=== PATIENT | female | born 1965 | race Caucasian/White ===

== ENCOUNTER 2023-12-27 13:58 | Outpatient (OUT) | payer OTHER, SELFPAY ==
--- NOTE | 2023-12-27 14:58 | PM.CN ---
Consult Note: HPI Data of Consult Patient: new to practice Consult date: 12/27/23 Requesting Physician: Chris Shah MD Primary Care Provider: BOONE PHILIPPE Consult Narrative Reason for consult: low back, left hip and leg pain Narrative: 58yof who presents for evaluation. longstanding left low back pain, radiates into hip and leg. worsened over past several months as physical demands at job have increased. was previously diagnosed with sacroiliac joint pathology at [facility]. has continued in a series of provider directed home exercises >6 weeks, without significant benefit. uses ibuprofen daily, as needed. denies adverse med side effects. cc:: CC: Chris Shah MD Review of Systems ROS Status of ROS 10 or more systems reviewed and unremarkable except as noted in history and below Exam Narrative Exam Narrative: Psych-alert and oriented x 3. Attentive and appropriate, constitutionally normal, displays normal mood and affect per situation. There are no obvious deficits in memory, reasoning, or intellect.? Skin-no obvious rashes, bruising, erythema noted to the patient's area of pain.? Extremities- extremities are warm with minimal edema and palpable pulses. Lumbar-tenderness to palpation noted in the lumbar spine and paraspinal musculature. Pain is elicited with flexion, extension, and lateral rotation of the lumbar spine. Range of motion is diminished with these motions. Facet loading maneuvers are positive.? Strength-noted to be unremarkable with the exception of decreased strength rated at 4 out of 5 in left quadriceps femoris. Sensory-no notable sensory deficits in the bilateral lower extremities to touch or pinprick in all dermatomal distributions with the exception to decreased sensation to the left L4, 5 dermatomal distribution Sacroiliac - tender to palpation over left PSIS. Positive Elkin's on left. Positive thigh thrust on left. Coordination remains intact.? Gait remains non-antalgic. Assessment and Plan Assessment and Plan (1) Lumbar stenosis with neurogenic claudication: (2) Sacroiliac joint dysfunction of left side: Plan 58yof who presents for evaluation. failed conservative measures, as noted. given symptoms and exam findings, would like her to undergo lumbar mri without contrast, as well as xr sacrum and left hip. she is in agreement. meds reviewed. will trial celebrex 200mg bid prn, as well as baclofen 10mg qhs. follow up after imaging.
== END 2023-12-27 13:59 | disposition home or self-care (01) ==
LOC: PM 13:58
PROVIDERS: PCP Family Medicine; Visit Provider Anesthesiology
DX: M48.062 Spinal stenosis, lumbar region with neurogenic claudication (principal); M53.3 Sacrococcygeal disorders, not elsewhere classified
CPT/HCPCS: G0463

== ENCOUNTER 2024-02-14 15:16 | Outpatient (OUT) | payer OTHER, SELFPAY ==
--- NOTE | 2024-02-14 15:19 | MR_ITS ---
[place] [id number] Patient Name: MEG HERNANDEZ MRN: [facility]:[id number] date: 1965 Sex: F Assigned Patient Location: MRI Current Patient Location: MRI Accession/Order Number: [id number] Exam Date: 02/14/2024 15:32 Report Date: 02/16/2024 12:05 At the request of: HANY ROCK Procedure: MR lumbar spine wo con EXAMINATION: MR lumbar spine wo con HISTORY: Lumbar Stenosis With Neurocladication Chronic lumbar pain, 8 years. COMPARISON: None. TECHNIQUE: Multiplanar, multisequence MRI images of the lumbar spine without intravenous contrast. FINDINGS: There is grade 1 anterolisthesis at L4-L5 measuring 3 mm. Remaining vertebral bodies are anatomically aligned. No compression fractures. Moderate disc space narrowing at T11-T12 and disc desiccation throughout the lumbar spine. Conus medullaris terminates at L1. No abnormal signal in the distal spinal cord and the conus medullaris. L5-S1: Moderate to severe bilateral degenerative facet arthropathy and ligamentum flavum flavum hypertrophy. There is no significant central spinal canal or foraminal stenosis. L4-L5: Grade 1 anterolisthesis. Moderate to severe right and moderate left degenerative facet arthropathy. No spinal canal or foraminal stenosis. L3-L4: Minimal disc bulge and moderate bilateral degenerative facet arthropathy. No spinal canal or foraminal stenosis. L2-L3: Diffuse disc bulge. Mild facet arthropathy. No spinal canal or foraminal stenosis. T12-L1 and L1-L2: No disc herniations. No spinal canal or significant neural foraminal stenosis. MR/MR lumbar spine wo con IMPRESSION: 1. Mild multilevel degenerative disc disease and moderate multilevel facet arthropathy in the lumbar spine. 2. There is degenerative grade 1 anterolisthesis at L4-L5 secondary to facet arthropathy. 3. There are no levels of significant central spinal canal or foraminal stenosis in the lumbar spine. No compression fractures. Electronically authenticated by: TILA VÁSQUEZ Date: 02/16/2024 12:05
--- OUTSIDE RECORDS SUMMARY | 2024-02-14 15:27 | XMS_ITS | CCD ---
Author Organization [facility] Care Team Providers Care Equipment Installer Name Role Phone BOONE CORTES Attending Unavailable BOONE CORTES Primary Care Unavailable KUNYasir, DR SHOOK Primary Care Unavailable SAMSA, VERÓNICA Admitting Unavailable SAMSA, VERÓNICA Consulting Unavailable SAMSA, VERÓNICA Attending Unavailable KUNYasir, DR SHOOK Primary Care Unavailable SAMSA, VERÓNICA Admitting Unavailable SAMSA, VERÓNICA Consulting Unavailable SAMSA, VERÓNICA Attending Unavailable SEBASTIAN, DR SHOOK Primary Care Unavailable SAMSA, VERÓNICA Consulting Unavailable SAMSA, VERÓNICA Attending Unavailable SAMSA, VERÓNICA Admitting Unavailable KATELYNN PROCTOR Consulting Unavailable KUNYasir, DR SHOOK Primary Care Unavailable SAMSA, VERÓNICA Admitting Unavailable SAMSA, VERÓNICA Consulting Unavailable SAMSA, VERÓNICA Attending Unavailable ZIEBER, DR DANIKA Wan Consulting Unavailable KUNYasir, DR SHOOK Primary Care Unavailable SAMSA, VERÓNICA Attending Unavailable SAMSA, VERÓNICA Admitting Unavailable SAMSA, VERÓNICA Consulting Unavailable Clare Cortestt Unavailable Phong Mitchell Unavailable Gerhard Nunez Unavailable [phone] Sebastian, DO Shook Primary Care Provider Sebastian, DO Shook Attending Provider [phone] Enders, DO Shook Primary Care Provider DO Boone Cortes Attending Provider [phone] Enders, DO Shook Primary Care Provider Enders, DO Shook Attending Provider Enders, DO Shook Primary Care Provider Sebastian, DO Shook Attending Provider Pablo GAYTAN, Chris Barnett Attending Unavailable PROVIDER, UNKNOWN Attending Unavailable PROVIDER, UNKNOWN Admitting Unavailable RULA WARREN Referring Unavailable BOONE CORTES Primary Care Unavailable Sebastian, DO Shook Primary Care Provider DO Boone Cortes Attending Provider Kuns DO, Boone R Primary Care Provider [phone] LOTUS CHILDS Attending Unavailable LOTUS CHILDS Referring Unavailable ORESTES SANCHEZ Attending Unavailable Sebastian, Boone Primary Care Unavailable Enders, Boone Attending Unavailable Enders, Boone Admitting Unavailable Kuns, Boone Attending Unavailable Enders, Boone Admitting Unavailable Kuns, Boone Primary Care Unavailable Allergies Allergy Classification Reported Allergen(s) Allergy Type Date of Onset Reaction(s) Facility (1 source) Azithromycin Drug Allergy 12-27-19 20 [facility] (1 source) Cetirizine Drug Allergy 12-28-19 20 [facility] (20 sources) Azithromycin Drug Allergy 01-21-20 21 cardiac Sx, rapid heart rate, rapid heart rate, cardiac Sx [facility] (20 sources) fluticasone / vilanterol Drug Allergy Unknown Medialets Other (20 sources) Breo Propensity to adverse reactions 04-27-19 24 headache [facility] (1 source) Betamethasone Drug Allergy 05-17-19 16 Swelling [facility] (1 source) Fluticasone Furoate-Vilantero l Drug Allergy 04-27-19 24 [facility] Medications Current Medications Medication Drug Class(es) Dates Sig (Normalized) Sig (Original) acetaminophen 325 mg / HYDROcodone bitartrate 5 mg oral tablet (2 sources) Opioid Agonist Start: 02-12-2021 take 1 tablet by mouth every six hours HYDROcodone-Aceta minophen 5-325 MG 1 tablet as needed Orally every 6 hrs for 7 days Jan, Active albuterol 0.417 mg/ml inhalation solution (20 sources) beta2-Adrenergic Agonist Start: 01-20-2021 take 1.25 mg by inhalation every four to six hours Albuterol Sulfate Active 1.25 MG INHALATION EVERY 4-6 HOURS January 20, 2021 12:00am Start: 09-19-2019 take 1 puff(s) by in halation every four hours as needed Albuterol Sulfate HFA 108 (90 Base) MCG/ACT 1 puff as needed Inhalation every 4 hrs PRN Sep, Not-Taking/PRN Start: 09-19-2019 take 1 puff(s) by in halation every four hours as needed Albuterol Sulfate HFA 108 (90 Base) MCG/ACT 1 puff as needed Inhalation every 4 hrs PRN Sep, Not-Taking Start: 09-19-2019 take 1 puff(s) by in halation every four hours as needed Albuterol Sulfate HFA 108 (90 Base) MCG/ACT 1 puff as needed Inhalation every 4 hrs PRN Sep, Not-Taking albuterol (5 MG/ ML) 0.5% nebulizer solution Take by nebulization every 6 (six) hours if needed for wheezing Active Albuterol Sulfat e (2.5 MG/3ML) 0.083% 1 unit dose Inhalation four times a day DX J44.9 COPD Not-Taking/PRN Albuterol Sulfat e (2.5 MG/3ML) 0.083% 1 unit dose Inhalation four times a day DX J44.9 COPD Not-Taking amoxicillin 875 mg / clavulanate 125 mg oral tablet (3 sources) Penicillin-class Antibacterial Start: 06-30-2022 take 1 tablet by mouth every twelve hours Amoxicillin-Pot Clavulanate 875-125 MG 1 tablet Orally every 12 hrs for 10 days Jun, Active azithromycin 250 mg oral tablet (1 source) Macrolide Antimicrobial Start: 12-29-2021 Zithromax Z-Rishi 250 MG as directed Orally as directed Dec, Active baclofen 10 mg oral tablet (1 source) gamma-Aminobutyric Acid-ergic Agonist Start: 01-23-2024 take 1 tablet by mouth at bedtime baclofen (Lioresal) 10 MG tablet Take 10 mg by mouth at bedtime 01/23/2024 Active celecoxib 200 mg oral capsule (1 source) Nonsteroidal Anti-inflammatory Drug Start: 01-23-2024 take 1 capsule by mouth twice daily as needed celecoxib (CeleBREX) 200 MG capsule TAKE 1 CAPSULE BY MOUTH TWICE A DAY NEEDED 01/23/2024 Active cyclobenzaprine hydrochloride 5 mg oral tablet (2 sources) Muscle Relaxant Start: 02-12-2021 take 1 tablet by mouth every eight hours Cyclobenzaprine HCl 5 MG 1 tablet as needed Orally every 8 hours Jan, Active doxycycline hyclate 100 mg oral tablet (4 sources) Tetracycline-class Drug Start: 12-24-2022 take 1 tablet by mouth every twelve hours Doxycycline Hyclate 100 MG 1 tablet Orally Twice a day for 10 days Dec, Active nabumetone 750 mg oral tablet (12 sources) Nonsteroidal Anti-inflammatory Drug Start: 03-05-2021 take 1 tablet by mouth every twelve hours Nabumetone 750 MG 1 tablet Orally Twice a day for 30 day(s) Feb, Active Nebulizer (7 sources) Start: 05-26-2018 Nebulizer PRN May, Active paxlovid (300/100) 20 x 150 mg & 10 x 100mg tablet therapy pack (4 sources) Start: 04-27-2023 Paxlovid (300/100) 20 x 150 MG & 10 x 100MG as directed Orally bid as directed for 5 days + Covid 04/27/22, GFR >60, Hold statin x 10 days Apr, Active predniSONE 20 mg oral tablet (7 sources) Start: 12-18-2020 take 1 tablet by mouth at mealtime, then take 1 tablet by mouth three times daily, then take 1 tablet by mouth twice daily, then take 1 tablet by mouth once daily predniSONE 20 MG 1 tablet with food or milk Orally 1 tab TID x 3 days , 1 tab BID x 3 days , 1 tab QD x 3 days Dec, Active rosuvastatin calcium 5 mg oral tablet (20 sources) HMG-CoA Reductase Inhibitor Start: 12-01-2023 take 5 mg by mouth once daily Rosuvastatin Active 5 MG PO Daily December 01, 2023 12:00am Start: 06-09-2022 take 1 tablet by ren th every twenty-four hours Rosuvastatin Calcium 5 MG 1 tablet Orally Once a day May, Active Completed/Discontinued Medications Medication Drug Class(es) Dates Sig (Normalized) Sig (Original) acetaminophen 500 mg oral tablet (4 sources) take 1 tablet by mouth every six hours Tylenol Extra Strength 500 MG 1 tablet as needed Orally every 6 hrs PRN Not-Taking/PRN Augmentin Tablets 875 MG (5 sources) Start: 10-06-2021 take 1 tablet by mouth every twelve hours Augmentin Tablets 875 MG 1 tablet orally twice a day Sep, Not-Taking Start: 10-06-2021 take 1 tablet by ren every twelve hours Augmentin Tablets 875 MG 1 tablet orally twice a day Sep, Active Start: 10-06-2021 take 1 tablet by ren every twelve hours Augmentin Tablets 875 MG 1 tablet orally twice a day for 10 days Sep, Active cefdinir 300 mg oral capsule (7 sources) Cephalosporin Antibacterial Start: 07-20-2023 End: 12-01-2023 take 300 mg by mouth twice daily Cefdinir Discontinued 300 MG PO Twice daily July 20, 2023 12:00am December 01, 2023 2:47pm Start: 04-27-2023 take 1 capsule by mo [facility] every twelve hours Cefdinir 300 MG 1 capsule Orally twice a day for 10 days Apr, Active fluticasone propionate 0.05 mg/actuat metered dose nasal spray (20 sources) Corticosteroid Start: 03-27-2021 take 2 spray(s) nasal route once daily as needed Fluticasone Propionate 50 MCG/ACT 2 sprays in each nostril Nasally Once a day for 30 day(s) PRN Mar, Not-Taking/PRN Start: 03-27-2021 take 2 spray(s) nasa l route once daily as needed Fluticasone Propionate 50 MCG/ACT 2 sprays in each nostril Nasally Once a day for 30 day(s) PRN Mar, Not-Taking ibuprofen 800 mg oral tablet (20 sources) Nonsteroidal Anti-inflammatory Drug Start: 08-24-2023 End: 02-09-2024 take 1 tablet by mouth three times daily as needed ibuprofen 800 MG tablet Take 800 mg by mouth 3 (three) times a day as needed 08/24/2023 02/09/2024 Discontinued Start: 01-20-2021 take 1 tablet by ren once daily Ibuprofen (Motrin) 800 mg Tablet Active 800 MG PO Daily January 20, 2021 12:00am Start: 07-07-2016 take 1 tablet by ren th three times daily as needed Ibuprofen 800 MG 1 tablet Orally Three times a day as needed for 90 days Jun, Active Start: 07-07-2016 take 1 tablet by ren th every six hours as needed Ibuprofen 800 MG 1 tablet Orally every 6 hrs as needed PRN Jun, Active Ketorolac (20 sources) Nonsteroidal Anti-inflammatory Drug, Cyclooxygenase Inhibitor Start: 08-21-2020 Toradol p er 15 mg August, 60 mg Start: 01-09-2015 Toradol per 15 mg Dec, 2 mL methylPREDNISolone (14 sources) Corticosteroid Start: 11-24-2023 End: 02-09-2024 methylPREDNISolone (Medrol Dospak) 4 MG tablets Indications: Cough, unspecified type Follow schedule on package instructions 21 tablet 11/24/2023 02/09/2024 Discontinued Start: 07-20-2023 End: 12-01-2023 take 1 tablet by mouth once Methylprednisolone (Medrol (Rishi)) 4 mg tablets,dose pack Discontinued 0 PO per package directions July 20, 2023 12:00am December 01, 2023 2:47pm PO PER PKG DIR Start: 12-24-2022 Medrol 4 MG as directed Orally Dec, Active Start: 10-06-2021 methylPREDNISo lone 4 MG as directed Orally as directed Dec, Active ondansetron 4 mg oral tablet (20 sources) Serotonin-3 Receptor Antagonist Start: 10-29-2020 take 1 tablet by mouth twice daily as needed Zofran 4 MG 1 tablet PO bid prn Oct, Not-Taking/PRN oxyCODONE hydrochloride 5 mg oral tablet (7 sources) Opioid Agonist Start: 02-04-2021 End: 12-01-2023 take 1 tablet by mouth every six hours Oxycodone (Roxicodone) 5 mg tablet Discontinued 5 MG PO Q6H 30 7 February 04, 2021 December 01, 2023 2:46pm pantoprazole 40 mg delayed release oral tablet (20 sources) Proton Pump Inhibitor Start: 01-20-2021 End: 12-01-2023 take 1 tablet by mouth in the morning pantoprazole (ProtoNix) 20 MG EC tablet Take 20 mg by mouth in the morning and 20 mg before bedtime. 12/01/2023 Active Start: 12-20-2019 End: 02-09-2024 take 1 tablet by mouth in the morning pantoprazole (ProtoNix) 40 MG EC tablet Take 40 mg by mouth in the morning and 40 mg before bedtime. 04/06/2023 02/09/2024 Discontinued Start: 12-20-2019 take 1 tablet by ren th every twelve hours Pantoprazole Sodium 40 MG 1 tablet Orally BID for 90 days Dec, Active Toradol 30 mg/ml (20 sources) Start: 09-20-2020 Toradol 30 mg/ ml Sep, 2 cc Triamcinolone (20 sources) Corticosteroid Start: 06-27-2021 Kenalog -40 mg Jun, 40 mg Tylenol Extra Strength 500 MG (20 sources) take 1 tablet by mouth every six hours as needed Tylenol Extra Strength 500 MG 1 tablet as needed Orally every 6 hrs PRN Not-Taking take 1 tablet by ren th every six hours as needed Tylenol Extra Strength 500 MG 1 tablet a s needed Orally every 6 hrs PRN Active Problems Active Problems Problem Classification Problem Date Documented Da te Episodic/Chronic Asthma (20 sources) Unspecified asthma, uncomplicated; Translations: [Unspecified asthma with (acute) exacerbation] Onset: 12-29-2019 Resolved: 12-10-2021 Chronic Chronic obstructive pulmonary disease and bronchiectasis (20 sources) Bronchitis; Translations: [Bronchitis, not specified as acute or chronic] Episodic Diabetes mellitus without complication (20 sources) Hyperglycemia, unspecified; Translations: [Hyperglycemia] Onset: 07-21-2018 Episodic Diseases of white blood cells (20 sources) Leukocytosis; Translations: [Elevated white blood cell count, unspecified] 08-09-2023 Chronic Disorders of lipid metabolism (20 sources) Hyperlipidemia; Translations: [Hyperlipidemia, unspecified] Onset: 11-24-2023 Chronic Esophageal disorders (20 sources) Gastro-esophageal reflux disease without esophagitis; Translations: [Gastroesophageal reflux disease] Onset: 02-13-2020 Resolved: 07-10-2021 Chronic Genitourinary congenital anomalies (13 sources) Cyst of kidney; 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, unspecified] Chronic Genitourinary symptoms and ill-defined conditions (20 sources) Frequency of micturition; Translations: [Hematuria, unspecified] Episodic Joint disorders and dislocations; trauma-related (20 sources) Tear of lateral meniscus of knee; Translations: [Other tear of lateral meniscus, current injury, right knee, subsequent encounter] Onset: 01-15-2021 Resolved: 06-27-2021 Episodic Malaise and fatigue (20 sources) Fatigue; Translations: [Other fatigue] Episodic Nonmalignant breast conditions (3 sources) Lump in upper outer quadrant of right breast; Translations: [Unspecified lump in the right breast, upper outer quadrant] Onset: 02-02-2024 02-09-2024 Episodic Nonspecific chest pain (3 sources) Chest pain, unspecified; Translations: [Chest pain, unspecified] Onset: 07-21-2018 Episodic Other circulatory disease (1 source) Other specified symptoms and signs involving the circulatory and respiratory systems Episodic Other endocrine disorders (2 sources) Hypoglycemia; Translations: [Hypoglycemia, unspecified] 08-09-2023 Chronic Other gastrointestinal disorders (19 sources) Diarrhea; Translations: [Diarrhea, unspecified] Episodic Other gastrointestinal disorders (1 source) Diarrhea, unspecified Episodic Other lower respiratory disease (19 sources) Cough; Translations: [Cough] 07-20-2023 Episodic Other lower respiratory disease (3 sources) Wheezing; Translations: [Wheezing] 07-20-2023 Episodic Other non-traumatic joint disorders (18 sources) Pain in right knee; Translations: [Right knee pain, unspecified chronicity] Onset: 01-15-2021 Resolved: 07-10-2021 Episodic Other non-traumatic joint disorders (16 sources) Swelling of knee joint; Translations: [Effusion, right knee] Episodic Other non-traumatic joint disorders (1 source) Pain in left ankle and joints of left foot Episodic Other nutritional; endocrine; and metabolic disorders (1 source) Obesity, unspecified; Translations: [OBESITY UNSPECIFIED] Onset: 02-13-2020 Chronic Other nutritional; endocrine; and metabolic disorders (1 source) Body mass index (BMI) 36.0-36.9, adult; Translations: [BODY MASS INDEX BMI 36.0-36.9 ADULT] Onset: 02-13-2020 Chronic Other screening for suspected conditions (not mental disorders or infectious disease) (20 sources) Raised TSH level; Translations: [Other specified abnormal findings of blood chemistry] Onset: 01-05-2024 12-01-2023 Episodic Other upper respiratory disease (9 sources) Rhinitis; Translations: [Chronic rhinitis] Chronic Other upper respiratory disease (2 sources) Chronic rhinitis Onset: 03-27-2021 Resolved: 12-10-2021 Chronic Other upper respiratory disease (20 sources) Chronic rhinitis; Translations: [Chronic rhinitis] Chronic Other upper respiratory infections (20 sources) Acute sinusitis; Translations: [Acute sinusitis, unspecified] Episodic Residual codes; unclassified (20 sources) Family history of breast cancer; Translations: [Family history of malignant neoplasm of breast] 08-09-2023 Episodic Residual codes; unclassified (20 sources) Family history of cancer of colon; Translations: [Family history of malignant neoplasm of digestive organs] 08-09-2023 Episodic Residual codes; unclassified (1 source) Pain, unspecified Episodic Spondylosis; intervertebral disc disorders; other back problems (20 sources) Lumbar radiculopathy; Translations: [Radiculopathy, lumbar region] 08-09-2023 Episodic Sprains and strains (1 source) Sprain of unspecified ligament of left ankle, initial encounter Episodic Unclassified (1 source) Pleural effusion, not elsewhere classified Onset: 07-21-2018 Unclassified (1 source) Cough, unspecified; Translations: [Cough, unspecified] Onset: 07-20-2023 Past or Other Problems Problem Classification Problem Date Documented Da te Episodic/Chronic Headache; including migraine (2 sources) Headache; including migraine Onset: 04-28-2021 Resolved: 04-28-2021 Immunizations and screening for infectious disease (1 source) Contact with and (suspected) exposure to other viral communicable diseases; Translations: [CONTCT EXPS OTH VIRL COMMUNICABL DZ] Onset: 02-05-2020 Episodic Other aftercare (1 source) Encounter for removal of sutures; Translations: [Visit for suture removal Z48.02] Onset: 02-12-2021 Resolved: 02-12-2021 Episodic Other lower respiratory disease (5 sources) Cough; Translations: [COUGH] Onset: 02-06-2020 Episodic Other lower respiratory disease (1 source) Dyspnea, unspecified; Translations: [DYSPNEA UNSPECIFIED] Onset: 02-13-2020 Episodic Other lower respiratory disease (1 source) Wheezing; Translations: [Wheezing] Onset: 07-20-2023 Episodic Other upper respiratory disease (4 sources) Other voice and resonance disorders; Translations: [OTHER VOICE AND RESONANCE DISORDERS] Onset: 02-01-2020 Episodic Unclassified (1 source) Cough R05.9 Onset: 03-27-2021 Resolved: 03-27-2021 Results Test Name Value Interpretation Reference Range Facility US breast ndl core biopsy RT on 02-10-2024 US breast ndl core biopsy RT [facility] Main [place] [address] [place] [address] Mammography Report Signed Patient: Desiree Bolanos MR#: [id number] 7 : 1965 Acct:[id number] Age/Sex: 58 / F ADM Date: 02/10/24 Loc: [facility] Room: Type: [facility] Attending Dr: Orestes Sanchez DO Copies to: Boone Cortes,DO Orestes Sanchez DO Ordering Provider: Orestse Sanchez DO Date of Service: 02/10/24 US/US breast ndl core biopsy RT: N63.11 ([id number]) US/US bx lymph node: LN BX ([id number]) MM/MM post biopsy RT w/CAD: POST U/S BX WITH CLIPS Ultrasound-guided breast lesion biopsy with vacuum assistance HISTORY: Developing right mass and right axillary adenopathy PRIOR IMAGIN02/02/2024, 01/05/2024 TECHNIQUE: Right quadrant mass was localized. Sterile technique and local lidocaine utilized. Core biopsy needle was advanced with ultrasound guidance Multiple core tissue samples of the lesion obtained. Before the needle was removed, biopsy marking clip placed. No immediate complications identified. The large right axillary lymph node was localized. Sterile technique and local lidocaine utilized. Core biopsy needle was advanced with ultrasound guidance Multiple core tissue samples of the lesion obtained. Before the needle was removed, biopsy marking clip placed. No immediate complications identified. Mammogram obtained for biopsy marking clip localization. Biopsy marking clip is seen within the lesion. Biopsy marking clip identified in the right axillary enlarged lymph node. MM/MM post biopsy RT w/CAD IMPRESSION: Successful ultrasound-guided breast lesion biopsy and right axillary lymph node biopsy. RESULT CODE: NL Impression dictated by: Bandar Wray M.D.02/10/2024 12:09 PM Dictation Location: [facility] Transcribed By: FREDRICK 02/10/24 1209 Dictated By: Bandar Wray DO 02/10/24 1143 Signed By: 02/10/24 1209 Normal [facility] US breast RT limitedon 02-01 US breast RT limited [facility] Main [place] [address] [place] [address] Mammography Report Signed Patient: Desiree Bolanos MR#: [id number] 7 : 1965 Acct:[id number] Age/Sex: 58 / F ADM Date: 02/02/24 Loc: [facility] Room: Type: [facility] Attending Dr: Boone Cortes DO Copies to: Boone Cortes DO Ordering Provider: Boone Cortes DO Date of Service: 02/02/24 US/US breast RT limited: R92.8 - Other abnormal and inconclusive findings on diagn... ([id number]) MM/MM diagnostic mammo RT w/CAD: R92.8 - Other abnormal and inconclusive findings on diagn... CLINICAL DATA: Follow-up abnormal outside mammogram showing an irregular mass with associated calcifications at the upper outer right breast. RIGHT DIAGNOSTIC MAMMOGRAMS - FULL FIELD DIGITAL WITH TOMOSYNTHESIS AND CAD Tomosynthesis true lateral and spot magnification craniocaudal and mediolateral oblique views of the right breast were obtained using low-dose digital technique. Comparison is made to prior studies from March 05, 2015 and January 05, 2024. This examination was reviewed with the aid of CAD. There are scattered fibroglandular densities. There is redemonstration of an irregular asymmetry at the upper outer right breast approximately 5 cm from the nipple. This contains pleomorphic appearing calcifications. There are some additional benign calcifications within the breast. The axilla is not included on today's images though there was a lymph node with thickened cortex seen on the recent outside screening study. When compared to the 2014 exam, this represents a change. LIMITED RIGHT BREAST ULTRASOUND Real-time ultrasound evaluation the upper outer breast was performed. The axilla was also scanned. At the 10:00 position, 7 to 8 cm from the nipple there is an ill-defined hypoechoic area which has some associated shadowing. The area is at least 2.3 x 1.6 x 1.5 cm in size. There are some echogenic foci correlating with the calcifications seen mammographically. At the axilla, there are multiple hypoechoic reniform nodules compatible with lymph nodes. One of the nodes has associated thickened cortex. It measures 2.4 x 1.0 x 2.7 cm in size The cortex measures up to a centimeter in thickness. MM/MM diagnostic mammo RT w/CAD IMPRESSION: IRREGULAR HYPOECHOIC AREA WITH ASSOCIATED PLEOMORPHIC CALCIFICATIONS AT THE UPPER OUTER RIGHT BREAST. THIS IS A SUSPICIOUS FINDING THAT WILL REQUIRE BIOPSY. ULTRASOUND GUIDANCE IS RECOMMENDED. RIGHT AXILLARY LYMPH NODE WITH THICKENED CORTEX. ULTRASOUND-GUIDED BIOPSY OF THIS SITE IS ALSO SUGGESTED. Findings were discussed with the patient at the time of the exam. RESULT CODE: 4 Suspicious Abnormality - Biopsy Considered DENSITY CODE: 2 (approximately 25-50% glandular) FOLLOW UP: BIO The false-negative rate of mammography is approximately 10-percent. Management of a palpable abnormality must be based on clinical grounds. Patient was entered into a reminder system with a target due date for the next mammogram. Impression dictated by: Belem Maldonado M.D.02/02/2024 3:26 PM Dictation Location: [facility] Transcribed By: [facility] 02/02/24 1526 Dictated By: Belem Maldonado MD 02/02/24 1450 Signed By: 02/02/24 1526 [place] [facility] MG MAMMO SCREEN BILAT CAMERON W /CADon 01-25-2024 MG MAMMO SCREEN BILAT [place]ERON W/CAD EXAM: BILATERAL SCREENING MAMMOGRAM W/TOMOSYNTHESIS AND CAD CLINICAL HISTORY: Patient is 58 years old and is seen for screening. The patient has no personal history of cancer. The patient has the following family history of breast cancer: mother, at age 73, breast cancer. COMPARISON: No prior imaging studies are available for comparison. TECHNIQUE: The following mammographic views were obtained: bilateral CC with tomosynthesis and MLO with tomosynthesis. Computer-aided detection was utilized by the radiologist in the interpretation of this examination. MAMMOGRAM FINDINGS: There are scattered areas of fibroglandular densities. Finding 1 There is an irregular mass with associated calcifications in the upper outer quadrant of the right breast at middle depth. Finding 2 There is an abnormal lymph node in the right axilla. No suspicious masses, calcifications or other abnormalities are seen in the left breast. IMPRESSION: Finding 1 Mass in the upper outer quadrant of the right breast at middle depth requires additional evaluation. A diagnostic right breast ultrasound exam ([id number]) is recommended. Diagnostic mammogram ([id number]) of the right breast including spot magnification views are recommended. Finding 2 Abnormal lymph node in the right axilla requires additional evaluation. A diagnostic right breast ultrasound exam ([id number]) is recommended. There is no evidence of malignancy in the left breast. BI-RADS Category 0: Incomplete, Needs Additional Imaging Evaluation The [facility] Coordinator and Navigator will place a reflexive Epic order, contact and schedule the appropriate appointments. RISK ASSESSMENT: Estimated lifetime breast cancer risk: Average (less than 15%, as per the Tyrer-Cuzick/ESTEFANÍA model) NCI Lifetime Risk Score: 14.0% Normal [facility] XR CHEST 2 VIEWSon XR CHEST 2 VIEWS EXAM: XR - CHEST 2 V IEWS Clinical History: Dry cough Reference Exam: No comparison Findings: The cardiopericardial silhouette is normal in appearance. The pulmonary vessels are not cephalized. There is no alveolar edema, pneumonia, or pneumothorax. Negative for pleural effusion. The skeleton is unremarkable. Impression: Negative for specific acute cardiopulmonic pathology. Dictated on: 11/24/2023 3:42 PM This report has been electronically signed and approved by the interpreting Radiologist. Electronically Signed Kana Jose M.D. 2023-11-24 15:42:22 Normal Not Available Alanine aminotransferase [En zymatic activity/volume] in Serum or PlasmaOrdered By: Boone Cortes on 07-20-2023 ALT [Catalytic activity/Vol] 22 U/L Normal 7-52 [facility] Comment on above: Performed By: #### D IFF CBC, BIOFIRECOVNOTDE, RESP PANEL UPP., CMP #### [facility] [address] Albumin [Mass/volume] in Ser um or Plasma by Bromocresol green (BCG) dye binding methoOrdered By: Boone Cortes on 07-20-2023 Albumin BCG dye [Mass/Vol] 4.5 g/dL 3.5-5.7 [facility] Alkaline phosphatase [Enzyma tic activity/volume] in Serum or PlasmaOrdered By: Boone Cortes on 07-20-2023 ALP [Catalytic activity/Vol] 86 U/L Normal 34-104 [facility] Comment on above: Result Comment: PERF ORMED BY: [place] [address] PATHOLOGIST PROGRAM DIR ROCKY GAMING M.D. Performed By: #### D IFF CBC, BIOFIRECOVNOTDE, RESP PANEL UPP., CMP #### [address] Aspartate aminotransferase [ Enzymatic activity/volume] in Serum or PlasmaOrdered By: Boone Cortes on 07-20-2023 AST [Catalytic activity/Vol] 19 U/L Normal 13-39 [facility] Comment on above: Performed By: #### D IFF CBC, BIOFIRECOVNOTDE, RESP PANEL UPP., CMP #### [place] [address] [place] Basophils Auto (Bld) [#/Vol] Ordered By: Boone Cortes on 07-20-2023 Basophils (Bld) [#/Vol] N/A [facility] Basophils/100 WBC Auto (Bld) Ordered By: Boone Cortes on 07-20-2023 Basophils/100 WBC (Bld) N/A [facility] Bilirubin.total [Mass/volume ] in Serum or PlasmaOrdered By: Boone Cortes on 07-20-2023 Bilirubin [Mass/Vol] 0.3 mg/dL Normal 0.3-1.0 [facility] Comment on above: Performed By: #### D IFF CBC, BIOFIRECOVNOTDE, RESP PANEL UPP., CMP #### [facility] [address] [place] [address] [place] BioFire Not Detectedon 07-19 BioFire Not Detected Not detected Normal Not Detecte [facility] Comment on above: Result Comment: This is a duplicate RP2.1 COVID (PCR) result to be used for statistical tracking purpose only. PERFORMED BY: [place] [address] PATHOLOGIST PROGRAM DIR ROCKY GAMING M.D. Performed By: #### D IFF CBC, BIOFIRECOVNOTDE, RESP PANEL UPP., CMP #### [facility] [address] COVID-19 Detected/Not Detect edOrdered By: Boone Cortes on 07-20-2023 SARS-CoV-2 (COVID-19) RNA MICHELLE+non-probe Ql (Nph) Not detected Not Detecte [facility] Comment on above: This is a duplicate RP2.1 COVID (PCR) result to be used for statistical tracking purpose only. Calcium [Mass/volume] in Ser um or PlasmaOrdered By: Boone Cortes on 07-20-2023 Calcium [Mass/Vol] 9.7 mg/dL Normal 8.6-10.3 [facility] Comment on above: Performed By: #### D IFF CBC, BIOFIRECOVNOTDE, RESP PANEL UPP., CMP #### [address] Carbon dioxide, total [Moles /volume] in Serum or PlasmaOrdered By: Boone Cortes on 07-20-2023 CO2 [Moles/Vol] 30.3 mmol/L Normal 21.0-31.0 [facility] Comment on above: Performed By: #### D IFF CBC, BIOFIRECOVNOTDE, RESP PANEL UPP., CMP #### [address] Chloride [Moles/volume] in S birdie or PlasmaOrdered By: Boone Cortes on 07-20-2023 Chloride [Moles/Vol] 104 mmol/L Normal 98-107 [facility] Comment on above: Performed By: #### D IFF CBC, BIOFIRECOVNOTDE, RESP PANEL UPP., CMP #### [address] Comprehensive Metabolic Pane reid 07-20-2023 Albumin [Mass/Vol] 4.5 g/dL Normal 3.5-5.7 [facility] Comment on above: Performed By: #### D IFF CBC, BIOFIRECOVNOTDE, RESP PANEL UPP., CMP #### [address] GFR/1.73 sq M.predicted MDRD (S/P/Bld) [Vol rate/Area] mL/min/{1.73_m2} Normal [facility] Comment on above: Performed By: #### D IFF CBC, BIOFIRECOVNOTDE, RESP PANEL UPP., CMP #### [address] Creatinine [Mass/volume] in Serum or PlasmaOrdered By: Boone Cortes on 07-20-2023 Creatinine [Mass/Vol] 0.74 mg/dL Normal 0.60-1.20 [facility] Comment on above: Performed By: #### D IFF CBC, BIOFIRECOVNOTDE, RESP PANEL UPP., CMP #### [address] Diff and CBCon 07-20-2023 Mean Corpuscular HGB Conc 33.2 g/dL Normal 32.0-35.0 [facility] Comment on above: Performed By: #### D IFF CBC, BIOFIRECOVNOTDE, RESP PANEL UPP., CMP #### [address] Platelet Estimate Normal Normal Normal [facility] Comment on above: Performed By: #### D IFF CBC, BIOFIRECOVNOTDE, RESP PANEL UPP., CMP #### [address] Platelet Morphology Normal Normal Normal [facility] Comment on above: Result Comment: PERF ORMED BY: [place] [address] PATHOLOGIST PROGRAM DIR ROCKY GAMING M.D. Performed By: #### D IFF CBC, BIOFIRECOVNOTDE, RESP PANEL UPP., CMP #### [address] Reactive Lymphocytes 6 % Normal 0-12 [facility] Comment on above: Performed By: #### D IFF CBC, BIOFIRECOVNOTDE, RESP PANEL UPP., CMP #### [facility] [address] Eosinophils Auto (Bld) [#/Vo l]Ordered By: Boone Cortes on 07-20-2023 Eosinophils (Bld) [#/Vol] N/A [facility] Eosinophils/100 WBC Auto (Bl d)Ordered By: Boone Cortes on 07-20-2023 Eosinophils/100 WBC (Bld) N/A [facility] Eosinophils/100 leukocytes i n Blood by Manual countOrdered By: Boone Cortes on 07-20-2023 Eosinophils/100 WBC (Bld) 7 % High 1-3 [facility] Comment on above: Performed By: #### D IFF CBC, BIOFIRECOVNOTDE, RESP PANEL UPP., CMP #### [facility] [address] [place] [address] Erythrocyte distribution wid th [Ratio] by Automated countOrdered By: Boone Cortes on 07-20-2023 Erythrocyte distribution width (RBC) [Ratio] 13.7 % Normal 11.9-15.3 [facility] Comment on above: Performed By: #### D IFF CBC, BIOFIRECOVNOTDE, RESP PANEL UPP., CMP #### [address] Erythrocytes [#/volume] in B lood by Automated countOrdered By: Boone Cortes on 07-20-2023 RBC (Bld) [#/Vol] 4.41 10*6/uL Normal 3.60-5.00 [facility] Comment on above: Performed By: #### D IFF CBC, BIOFIRECOVNOTDE, RESP PANEL UPP., CMP #### [address] Glucose [Mass/volume] in Ser um or PlasmaOrdered By: Boone Cortes on 07-20-2023 Glucose [Mass/Vol] 78 mg/dL Normal 70-100 [facility] Comment on above: ADA recommended refe rence rangeRandom Glucose Reference Range is dependent on time and content of last meal. Glucose of more than 200 mg/dL in a nonstressed, ambulatory subject supports the diagnosis of Diabetes Mellitus. Result Comment: [place] om Glucose Reference Range is dependent on time and content of last meal. Glucose of more than 200 mg/dL in a nonstressed, ambulatory subject supports the diagnosis of Diabetes Mellitus. ADA recommended reference range Performed By: #### D IFF CBC, BIOFIRECOVNOTDE, RESP PANEL UPP., CMP #### [address] Hematocrit [Volume Fraction] of Blood by Automated countOrdered By: Boone Cortes on 07-20-2023 Hematocrit (Bld) [Volume fraction] 37.9 % Normal 34.0-46.4 [facility] Comment on above: Performed By: #### D IFF CBC, BIOFIRECOVNOTDE, RESP PANEL UPP., CMP #### [address] Hemoglobin [Mass/volume] in BloodOrdered By: Boone Cortes on 07-20-2023 Hemoglobin (Bld) [Mass/Vol] 12.6 g/dL Normal 11.8-15.4 [facility] Comment on above: Performed By: #### D IFF CBC, BIOFIRECOVNOTDE, RESP PANEL UPP., CMP #### [address] Leukocytes [#/volume] correc alfonso for nucleated erythrocytes in Blood by Automated counOrdered By: Boone Cortes on 07-20-2023 WBC corrected for nucl RBC Auto (Bld) [#/Vol] 7.0 10*3/uL 3.8-11.6 [facility] Leukocytes [#/volume] in Blo od by Automated countOrdered By: Boone Cortes on 07-20-2023 WBC (Bld) [#/Vol] 7.0 10*3/uL Normal 3.8-11.6 [facility] Comment on above: Performed By: #### D IFF CBC, BIOFIRECOVNOTDE, RESP PANEL UPP., CMP #### [facility] [address] [place] [address] Lymphocytes Auto (Bld) [#/Vo l]Ordered By: Boone Cortes on 07-20-2023 Lymphocytes (Bld) [#/Vol] N/A [facility] Lymphocytes/100 WBC Auto (Bl d)Ordered By: Boone Cortes on 07-20-2023 Lymphocytes/100 WBC (Bld) N/A [facility] Lymphocytes/100 leukocytes i n Blood by Manual countOrdered By: Boone Cortes on 07-20-2023 Lymphocytes/100 WBC (Bld) 41 % Normal 18-42 [facility] Comment on above: Performed By: #### D IFF CBC, BIOFIRECOVNOTDE, RESP PANEL UPP., CMP #### [address] MCH [Entitic mass] by Automa alfonso countOrdered By: Boone Cortes on 07-20-2023 MCH (RBC) [Entitic mass] 28.6 pg Normal 24.7-34.3 [facility] Comment on above: Performed By: #### D IFF CBC, BIOFIRECOVNOTDE, RESP PANEL UPP., CMP #### [facility] [address] [place] [address] MCHC Auto (RBC) [Mass/Vol]Or dered By: Boone Cortes on 07-20-2023 MCHC (RBC) [Mass/Vol] 33.2 g/dL 32.0-35.0 [facility] MCV [Entitic volume] by Auto mated countOrdered By: Boone Cortes on 07-20-2023 MCV (RBC) [Entitic vol] 86.0 fL Normal 80-100 [facility] Comment on above: Performed By: #### D IFF CBC, BIOFIRECOVNOTDE, RESP PANEL UPP., CMP #### [address] Manual blood segmented neutr ophils/100 leukocytesOrdered By: Boone Cortes on 07-20-2023 Segmented neutrophils/100 WBC (Bld) 42 % Low 50-70 [facility] Comment on above: Performed By: #### D IFF CBC, BIOFIRECOVNOTDE, RESP PANEL UPP., CMP #### [facility] [address] [place] [address] [place] Monocytes Auto (Bld) [#/Vol] Ordered By: Boone Cortes on 07-20-2023 Monocytes (Bld) [#/Vol] N/A [facility] Monocytes/100 WBC Auto (Bld) Ordered By: Boone Cortes on 07-20-2023 Monocytes/100 WBC (Bld) N/A [facility] Monocytes/100 leukocytes in Blood by Manual countOrdered By: Boone Cortes on 07-20-2023 Monocytes/100 WBC (Bld) 5 % Normal 2-11 [facility] Comment on above: Performed By: #### D IFF CBC, BIOFIRECOVNOTDE, RESP PANEL UPP., CMP #### [facility] [address] Neutrophils Auto (Bld) [#/Vo l]Ordered By: Boone Cortes on 07-20-2023 Neutrophils (Bld) [#/Vol] N/A [facility] Neutrophils/100 WBC Auto (Bl d)Ordered By: Boone Cortes on 07-20-2023 Neutrophils/100 WBC (Bld) N/A [facility] No Panel InformationOrdered By: Boone Cortes on 07-20-2023 Estimated GFR (CKD-EPI) > 60.0 mL/Min [facility] Creatinine Clearance (Chem N/A [facility] Nucleated erythrocytes [Pres ence] in Blood by Automated countOrdered By: Boone Cortes on 07-20-2023 Nucleated RBC Auto Ql (Bld) N/A [facility] Peripheral white blood cell differential % bands, microscopic examOrdered By: Boone Cortes on 07-20-2023 Band form neutrophils/100 WBC (Bld) 1 % Normal 0-5 [facility] Comment on above: Performed By: #### D IFF CBC, BIOFIRECOVNOTDE, RESP PANEL UPP., CMP #### [facility] [address] [place] [address] [place] Platelet adequacy [Presence] in Blood by Light microscopyOrdered By: Boone Cortes on 07-20-2023 Platelets LM Ql (Bld) Normal Normal [facility] Platelet mean volume [Entiti c volume] in Blood by Automated countOrdered By: Boone Cortes on 07-20-2023 Platelet mean volume (Bld) [Entitic vol] 7.4 fL Normal 6.3-10.7 [facility] Comment on above: Performed By: #### D IFF CBC, BIOFIRECOVNOTDE, RESP PANEL UPP., CMP #### [facility] [address] [place] [address] [place] Platelet morphology finding [Identifier] in BloodOrdered By: Boone Cortes on 07-20-2023 Platelet morphology finding Nom (Bld) Normal Normal [facility] Platelets [#/volume] in Bloo d by Automated countOrdered By: Boone Cortes on 07-20-2023 Platelets (Bld) [#/Vol] 382 10*3/uL Normal 150-450 [facility] Comment on above: Performed By: #### D IFF CBC, BIOFIRECOVNOTDE, RESP PANEL UPP., CMP #### [facility] [address] [place] [address] [place] Potassium [Moles/volume] in Serum or PlasmaOrdered By: Boone Cortes on 07-20-2023 Potassium [Moles/Vol] 4.4 mmol/L Normal 3.5-5.1 [facility] Comment on above: Performed By: #### D IFF CBC, BIOFIRECOVNOTDE, RESP PANEL UPP., CMP #### [facility] [address] [place] [address] [place] Protein [Mass/volume] in Ser um or PlasmaOrdered By: Boone Cortes on 07-20-2023 Protein [Mass/Vol] 7.1 g/dL Normal 6.4-8.9 [facility] Comment on above: Performed By: #### D IFF CBC, BIOFIRECOVNOTDE, RESP PANEL UPP., CMP #### [facility] [address] [place] [address] [place] RBC morphologyOrdered By: Toni Cortes on 07-20-2023 RBC morphology finding Nom (Bld) Normal Normal Normal [facility] Comment on above: Performed By: #### D IFF CBC, BIOFIRECOVNOTDE, RESP PANEL UPP., CMP #### [facility] [address] Respiratory (Upper) Panel, P CRon 07-20-2023 Respiratory (Upper) Panel, PCR Adenovirus Not detected Bordetella parapertussis Not detected Chlamydia pneumoniae Not detected Coronavirus 229E Not detected Coronavirus HKU1 Not detected Coronavirus NL63 Not detected Coronavirus OC43 Not detected Influenza A Not detected Influenza B Not detected Human Metapneumovirus Detected Mycoplasma pneumoniae Not detected Parainfluenza Virus 1 Not detected Parainfluenza Virus 2 Not detected Parainfluenza Virus 3 Not detected Parainfluenza Virus 4 Not detected Bordetella pertussis-ptxP Not detected Human Rhino/Enterovirus Not detected Resp. Syncytial Virus Not detected COVID-19 Detected/Not Detected Not detected Blank Space -- FLUA TEST INCLUDES Influenza A tests for the following clinically FLUA TEST INCLUDES significant subtypes: FLUA TEST INCLUDES - Influenza A FLUA TEST INCLUDES - Influenza A H1 FLUA TEST INCLUDES - Influenza A H1 2009 FLUA TEST INCLUDES - Influenza A H3 Blank Space -- PERFORMED BY: [place] [address] PATHOLOGIST PROGRAM DIR ROCKY GAMING M.D. Normal [facility] Comment on above: Performed By: #### D IFF CBC, BIOFIRECOVNOTDE, RESP PANEL UPP., CMP #### [facility] [address] Respiratory pathogens DNA an d RNA panel - Nasopharynx by MICHELLE with non-probe detectionOrdered By: Boone Cortes on 07-20-2023 Respiratory pathogens DNA and RNA panel MICHELLE+non-probe (Nph) [facility] Serum globulin measurement b y calculation (mass/volume)Ordered By: Boone Cortes on 07-20-2023 Globulin (S) [Mass/Vol] 2.6 g/dL Normal [facility] Comment on above: Performed By: #### D IFF CBC, BIOFIRECOVNOTDE, RESP PANEL UPP., CMP #### [address] Serum or plasma albumin/glob ulin mass ratioOrdered By: Boone Cortes on 07-20-2023 Albumin/Globulin [Mass ratio] 1.7 {ratio} [facility] Comment on above: Performed By: #### D IFF CBC, BIOFIRECOVNOTDE, RESP PANEL UPP., CMP #### [address] Serum or plasma anion gap de terminationOrdered By: Boone Cortes on 07-20-2023 Anion gap [Moles/Vol] 12.1 mmol/L Normal 6.0-15.0 [facility] Comment on above: Performed By: #### D IFF CBC, BIOFIRECOVNOTDE, RESP PANEL UPP., CMP #### [address] Sodium [Moles/volume] in Ser um or PlasmaOrdered By: Boone Cortes on 07-20-2023 Sodium [Moles/Vol] 142 mmol/L Normal 136-145 [facility] Comment on above: Performed By: #### D IFF CBC, BIOFIRECOVNOTDE, RESP PANEL UPP., CMP #### [address] Urea nitrogen [Mass/volume] in Serum or PlasmaOrdered By: Boone Cortes on 07-20-2023 Urea nitrogen [Mass/Vol] 12 mg/dL Normal 7-25 [facility] Comment on above: Performed By: #### D IFF CBC, BIOFIRECOVNOTDE, RESP PANEL UPP., CMP #### [facility] [address] [place] [id number] [place] Variant lymphocytes/100 WBC Manual cnt (Bld)Ordered By: Boone Cortes on 07-20-2023 Variant lymphocytes/100 WBC (Bld) 6 % 0-12 [facility] XR chest 2V*on 07-20-2023 XR chest 2V* [facility] [place] [address] [place] [address] XRay Report Signed Patient: Desiree Bolanos MR#: [id number] 7 : 1965 Acct:[id number] Age/Sex: 58 / F ADM Date: 07/20/23 Loc: XD Room: Type: [facility] Attending Dr: Boone Cortes DO Copies to: Boone Cortes DO Ordering Provider: Boone Cortes DO Date of Service: 07/20/23 XR/XR chest 2V*: R06.2 - Wheezing Chest 2 views CLINICAL HISTORY: Wheezing and cough for one month. COMPARISON: Chest 03/12/2021 FINDINGS: Heart normal in size. Lungs are clear. No free air. XR/XR chest 2V* IMPRESSION: NO ACUTE CARDIOPULMONARY ABNORMALITY. Impression dictated by: Willian Hernández Jr., D.O.07/20/2023 6:01 PM Dictation Location: [place] [address] Transcribed By: [facility] 07/20/23 180 Dictated By: Willian Hernández Jr, DO 07/20/23 180 Signed By: 07/20/23 1801 Normal [facility] COVID + FLU Quick Testingon 05-13-2023 SARS-CoV-2 (COVID-19) RNA MICHELLE+probe Ql (Unsp spec) Negative [facility] Other COVID + FLU Quick Testing Negative [facility] Other Quick Strepon 05-13-2023 S. pyogenes Org specific cx Ql (Throat) Negative [facility] Other Quick Strep [facility] Other COVID + FLU Quick Testingon 04-27-2023 SARS-CoV-2 (COVID-19) RNA MICHELLE+probe Ql (Unsp spec) Positive [facility] Other COVID + FLU Quick Testing Negative [facility] Other Quick Strepon 04-27-2023 S. pyogenes Org specific cx Ql (Throat) Positive [facility] Other Quick Strep [facility] Other RSVon 04-27-2023 RSV Ag IA Ql (Unsp spec) Negative [facility] Other A1C HEMOGLOBINon 01-27-2023 HbA1c (Bld) [Mass fraction] 6.1 % [facility] Other HbA1c (Bld) [Mass fraction]o n 01-27-2023 A1C HEMOGLOBIN [facility] Other COVID + FLU Quick Testingon 12-24-2022 SARS-CoV-2 (COVID-19) RNA MICHELLE+probe Ql (Unsp spec) Negative [facility] Other COVID + FLU Quick Testing Negative [facility] Other Quick Strepon 12-24-2022 S. pyogenes Org specific cx Ql (Throat) Negative [facility] Other Quick Strep [facility] Other RSVon 12-24-2022 RSV Ag IA Ql (Unsp spec) Negative [facility] Other Alanine aminotransferase [En zymatic activity/volume] in Serum or PlasmaOrdered By: Boone Cortes on 07-30-2022 ALT [Catalytic activity/Vol] 23 U/L 7-52 [facility] Albumin [Mass/volume] in Ser um or Plasma by Bromocresol green (BCG) dye binding methoOrdered By: Boone Cortes on 07-30-2022 Albumin BCG dye [Mass/Vol] 4.4 g/dL 3.5-5.7 [facility] Alkaline phosphatase [Enzyma tic activity/volume] in Serum or PlasmaOrdered By: Boone Cortes on 07-30-2022 ALP [Catalytic activity/Vol] 96 U/L 34-104 [facility] Aspartate aminotransferase [ Enzymatic activity/volume] in Serum or PlasmaOrdered By: Boone Cortes on 07-30-2022 AST [Catalytic activity/Vol] 15 U/L 13-39 [facility] Bilirubin.total [Mass/volume ] in Serum or PlasmaOrdered By: Boone Cortes on 07-30-2022 Bilirubin [Mass/Vol] 0.4 mg/dL 0.3-1.0 [facility] Calcium [Mass/volume] in Ser um or PlasmaOrdered By: Boone Cortes on 07-30-2022 Calcium [Mass/Vol] 9.2 mg/dL 8.6-10.3 [facility] Carbon dioxide, total [Moles /volume] in Serum or PlasmaOrdered By: Boone Cortes on 07-30-2022 CO2 [Moles/Vol] 24.0 mmol/L 21.0-31.0 [facility] Chloride [Moles/volume] in S birdie or PlasmaOrdered By: Boone Cortes on 07-30-2022 Chloride [Moles/Vol] 108 mmol/L 98-107 [facility] Cholesterol [Mass/volume] in Serum or PlasmaOrdered By: Boone Cortes on 07-30-2022 Cholesterol [Mass/Vol] 156 mg/dL 140-200 [facility] Comment on above: Chol less than 200 m g/dl low riskChol 201-239 mg/dl borderline riskChol 240 mg/dl and greater high risk Cholesterol in LDL Calc [Mas s/Vol]Ordered By: Boone Cortes on 07-30-2022 Cholesterol in LDL [Mass/Vol] 59 mg/dL 0-100 [facility] Comment on above: LDL ATP III CLASSIFI CATIONLDL less than 100 mg/dL OptimalLDL 100-129 mg/dL Near or above optimalLDL 130-159 mg/dL Borderline highLDL 160-189 mg/dL HighLDL greater than 189 mg/dL Very high Cholesterol in VLDL Calc [Ma ss/Vol]Ordered By: Boone Cortes on 07-30-2022 Cholesterol in VLDL [Mass/Vol] 60 mg/dL [facility] Creatinine [Mass/volume] in Serum or PlasmaOrdered By: Boone Cortes on 07-30-2022 Creatinine [Mass/Vol] 0.80 mg/dL 0.60-1.20 [facility] Globulin Calc (S) [Mass/Vol] Ordered By: Boone Cortes on 07-30-2022 Globulin (S) [Mass/Vol] 2.3 g/dL [facility] Glucose [Mass/volume] in Ser um or PlasmaOrdered By: Boone Cortes on 07-30-2022 Glucose [Mass/Vol] 128 mg/dL 70-100 [facility] Comment on above: ADA recommended refe rence rangeRandom Glucose Reference Range is dependent on time and content of last meal. Glucose of more than 200 mg/dL in a nonstressed, ambulatory subject supports the diagnosis of Diabetes Mellitus. Glucose mean value [Mass/vol ume] in Blood Estimated from glycated hemoglobinOrdered By: Boone Cortes on 07-30-2022 Average glucose Estimated from glycated hemoglobin (Bld) [Mass/Vol] 140 mg/dL [facility] Hemoglobin A1c percentageOrd ered By: Boone Cortes on 07-30-2022 HbA1c (Bld) [Mass fraction] 6.5 % 4.3-5.6 [facility] Comment on above: Increased risk for d iabetes: 5.7 - 6.4diabetes: >6.4glycemic control for adults with diabetes: <7.0 No Panel InformationOrdered By: Boone Cortes on 07-30-2022 Estimated GFR (CKD-EPI) > 60.0 mL/Min [facility] Creatinine Clearance (Chem N/A [facility] Potassium [Moles/volume] in Serum or PlasmaOrdered By: Boone Cortes 07-30-2022 Potassium [Moles/Vol] 4.3 mmol/L 3.5-5.1 [facility] Protein [Mass/volume] in Ser um or PlasmaOrdered By: Boone Cortes on 07-30-2022 Protein [Mass/Vol] 6.7 g/dL 6.4-8.9 [facility] Serum or plasma albumin/glob ulin mass ratioOrdered By: Boone Cortes on 07-30-2022 Albumin/Globulin [Mass ratio] 1.9 {ratio} [facility] Serum or plasma anion gap de terminationOrdered By: Boone Cortes on 07-30-2022 Anion gap [Moles/Vol] 13.3 mmol/L 6.0-15.0 [facility] Serum or plasma high density lipoprotein (HDL) cholesterol measurementOrdered By: Boone Cortes on 07-30-2022 Cholesterol in HDL [Mass/Vol] 37 mg/dL 35-85 [facility] Comment on above: HDL CHOL ATP-III CLA SSIFICATION Cardiovascular RiskHDL > or equal to 60 mg/dL LOWHDL < 40 mg/dL HIGH Serum or plasma total choles terol/high density lipoprotein (HDL) cholesterol mass ratOrdered By: Boone Cortes on 07-30-2022 Cholesterol.total/Cho lesterol in HDL [Mass ratio] 4.2 {ratio} <5.0 [facility] Sodium [Moles/volume] in Ser um or PlasmaOrdered By: Boone Cortes on 07-30-2022 Sodium [Moles/Vol] 141 mmol/L 136-145 [facility] Triglyceride [Mass/volume] i n Serum or PlasmaOrdered By: Boone Cortes on 07-30-2022 Triglyceride [Mass/Vol] 300 mg/dL 0-149 [facility] Comment on above: TRIG ATP III CLASSIF ICATIONTRIG less than 150 mg/dL NormalTRIG 150-199 mg/dL Borderline highTRIG 200-500 mg/dL High TRIG greater than 500 mg/dL Very highStandard traceable to the Center for Disease Conrtrol and Prevention (CDC) test method. Urea nitrogen [Mass/volume] in Serum or PlasmaOrdered By: Boone Cortes on 07-30-2022 Urea nitrogen [Mass/Vol] 12 mg/dL 7-25 [facility] Urine 10 SGon 07-29-2022 Albumin DL <= 20 mg/L (U) [Mass/Vol] Negative [facility] Other pH (U) 6.0 [pH] [facility] Other Urine 10 SG Negative [facility] Other Urine 10 SG 1.025 [facility] Other Urine 10 SG small [facility] Other Urine 10 SG 0.2 [facility] Other Serum or plasma thyroglobuli n antibody assay (units/volume)Ordered By: Boone Cortes on 06-09-2022 Thyroglobulin Ab Qn [IU]/mL 0.0-0.9 [facility] Comment on above: Thyroglobulin Antibo dy measured by RABTMethodologyPerformed at: [place] [facility] [place] [id number] Director: Abraham Urbano PhD, Phone: [phone] Serum or plasma thyroperoxid ase antibody assay (units/volume)Ordered By: Boone Cortes on 06-09-2022 TPO Ab Qn [IU]/mL 0-34 [facility] TSH DL <= 0.005 mIU/L QnOrde red By: Boone Cortes on 06-09-2022 TSH Qn 4.64 m[IU]/L 0.45-5.33 [facility] Albumin [Mass/volume] in Ser um or PlasmaOrdered By: Boone Cortes on 06-04-2022 Albumin [Mass/Vol] 3.9 g/dL 3.2-5.5 [facility] Basophils Auto (Bld) [#/Vol] Ordered By: Boone Cortes on 06-04-2022 Basophils (Bld) [#/Vol] 0.1 10*3/uL 0.0-0.2 [facility] Basophils/100 WBC Auto (Bld) Ordered By: Boone Cortes on 06-04-2022 Basophils/100 WBC (Bld) 0.9 % . [facility] Cholesterol [Mass/volume] in Serum or PlasmaOrdered By: Boone Cortes on 06-04-2022 Cholesterol [Mass/Vol] 283 mg/dL 140-200 [facility] Comment on above: Chol less than 200 m g/dl low riskChol 201-239 mg/dl borderline riskChol 240 mg/dl and greater high risk Cholesterol in LDL Calc [Mas s/Vol]Ordered By: Boone Cortes on 06-04-2022 Cholesterol in LDL [Mass/Vol] 186 mg/dL 0-100 [facility] Comment on above: LDL ATP III CLASSIFI CATIONLDL less than 100 mg/dL OptimalLDL 100-129 mg/dL Near or above optimalLDL 130-159 mg/dL Borderline highLDL 160-189 mg/dL HighLDL greater than 189 mg/dL Very high Cholesterol in VLDL Calc [Ma ss/Vol]Ordered By: Boone Cortes on 06-04-2022 Cholesterol in VLDL [Mass/Vol] 65 mg/dL [facility] Complete Blood Count Auto Di ffon 06-04-2022 Basophils (Bld) [#/Vol] 0.802356284 10*3/uL Normal 0.0-0.2 10*3/uL [facility] Other Basophils/100 WBC (Bld) 0.900 % . % [facility] Other Eosinophils (Bld) [#/Vol] 0.699319313 10*3/uL Normal 0.0-0.45 10*3/uL [facility] Other Eosinophils/100 WBC (Bld) 3.100 % . % [facility] Other Erythrocyte distribution width (RBC) [Ratio] 13.500 % Normal 11.9-15.3 % [facility] Other Hematocrit (Bld) [Volume fraction] 40.200 % Normal 34.0-46.4 % [facility] Other Hemoglobin (Bld) [Mass/Vol] 13.524617 g/dL Normal 11.8-15.4 g/dL [facility] Other Lymphocytes (Bld) [#/Vol] 3.262669738 10*3/uL Normal 1.00-4.8 10*3/uL [facility] Other Lymphocytes/100 WBC (Bld) 38.900 % . % [facility] Other MCH (RBC) [Entitic mass] 28.1000 pg Normal 24.7-34.3 pg [facility] Other MCV (RBC) [Entitic vol] 85.7000 fL Normal 80-100 fL [facility] Other Monocytes (Bld) [#/Vol] 0.027632792 10*3/uL Normal 0.0-0.8 10*3/uL [facility] Other Monocytes/100 WBC (Bld) 2.600 % . % [facility] Other Neutrophils (Bld) [#/Vol] 4.803285209 10*3/uL Normal 1.8-7.7 10*3/uL [facility] Other Neutrophils/100 WBC (Bld) 54.500 % . % [facility] Other Platelet mean volume (Bld) [Entitic vol] 7.8000 fL Normal 6.3-10.7 fL [facility] Other WBC (Bld) [#/Vol] 8.939621107 10*3/uL Normal 3.8 -11.6 10*3/uL [facility] Other Complete Blood Count Auto Diff 8.6 10*3/uL Normal 3.8-11.6 10*3/uL [facility] Other Complete Blood Count Auto Diff 32.8 g/dL Normal 32.0-35.0 g/dL [facility] Other Complete Blood Count Auto Diff 0.2 /100{WBC} Normal 0-0.5 /100{WBC} [facility] Other Comprehensive Metabolic Pane reid 06-04-2022 Albumin [Mass/Vol] 3.877891 g/dL Normal 3.2-5.5 g/dL [facility] Other ALT [Catalytic activity/Vol] 27 U/L Normal 10-60 U/L [facility] Other Bilirubin [Mass/Vol] 0.7386497 mg/dL Low 0.3- 1.2 mg/dL [facility] Other Calcium [Mass/Vol] 9.5717689 mg/dL Normal 8.2-10 .2 mg/dL [facility] Other CO2 [Moles/Vol] 24.77409703 mmol/L Normal 22.0-3 0.0 mmol/L [facility] Other Creatinine [Mass/Vol] 0.47390126 mg/dL Normal 0. 44-1.03 mg/dL [facility] Other Potassium [Moles/Vol] 3.23807421 mmol/L Normal 3 .5-5.1 mmol/L [facility] Other Protein [Mass/Vol] 7.698906 g/dL Normal 6.1-7.9 g/dL [facility] Other Comprehensive Metabolic Panel > 60 [facility] Other Comprehensive Metabolic Panel 3.1 g/dL [facility] Other Creatinine and Glomerular fi ltration rate.predicted panel (S/P/Bld)Ordered By: Boone Cortes on 06-04-2022 Creatinine [Mass/Vol] 0.89 mg/dL 0.44-1.03 [facility] Eosinophils Auto (Bld) [#/Vo l]Ordered By: Boone Cortes on 06-04-2022 Eosinophils (Bld) [#/Vol] 0.3 10*3/uL 0.0-0.45 [facility] Eosinophils/100 WBC Auto (Bl d)Ordered By: Boone Cortes on 06-04-2022 Eosinophils/100 WBC (Bld) 3.1 % . [facility] Erythrocyte distribution wid th Auto (RBC) [Ratio]Ordered By: Boone Cortes on 06-04-2022 Erythrocyte distribution width (RBC) [Ratio] 13.5 % 11.9-15.3 [facility] Erythrocytes [#/volume] in B lood by Automated countOrdered By: Boone Cortes on 06-04-2022 RBC (Bld) [#/Vol] 4.69 10*6/uL 3.60-5.00 [facility] Estimated glomerular filtrat ion rate (GFR) non- AmericanOrdered By: Boone Cortes on 06-04-2022 GFR/1.73 sq M.predicted among non-blacks MDRD (S/P/Bld) [Vol rate/Area] > 60 mL/Min [facility] Globulin Calc (S) [Mass/Vol] Ordered By: Boone Cortes on 06-04-2022 Globulin (S) [Mass/Vol] 3.1 g/dL [facility] Hematocrit Auto (Bld) [Volum e fraction]Ordered By: Boone Cortes on 06-04-2022 Hematocrit (Bld) [Volume fraction] 40.2 % 34.0-46.4 [facility] Hemoglobin [Mass/volume] in BloodOrdered By: Boone Cortes on 06-04-2022 Hemoglobin (Bld) [Mass/Vol] 13.2 g/dL 11.8-15.4 [facility] Leukocytes [#/volume] correc alfonso for nucleated erythrocytes in Blood by Automated counOrdered By: Boone Cortes on 06-04-2022 WBC corrected for nucl RBC Auto (Bld) [#/Vol] 8.6 10*3/uL 3.8-11.6 [facility] Lipid Panelon 06-04-2022 Cholesterol in LDL Elph Qn 186 mg/dL High 0-100 mg/dL [facility] Other Lipid Panel 326 mg/dL High 35-149 mg/dL [facility] Other Lipid Panel 65 mg/dL [facility] Other Lymphocytes Auto (Bld) [#/Vo l]Ordered By: Boone Cortes on 06-04-2022 Lymphocytes (Bld) [#/Vol] 3.4 10*3/uL 1.00-4.8 [facility] Lymphocytes/100 WBC Auto (Bl d)Ordered By: Boone Cortes on 06-04-2022 Lymphocytes/100 WBC (Bld) 38.9 % . [facility] MCH Auto (RBC) [Entitic mass ]Ordered By: Boone Cortes on 06-04-2022 MCH (RBC) [Entitic mass] 28.1 pg 24.7-34.3 [facility] MCHC Auto (RBC) [Mass/Vol]Or dered By: Boone Cortes on 06-04-2022 MCHC (RBC) [Mass/Vol] 32.8 g/dL 32.0-35.0 [facility] MCV Auto (RBC) [Entitic vol] Ordered By: Boone Cortes on 06-04-2022 MCV (RBC) [Entitic vol] 85.7 fL 80-100 [facility] Monocytes Auto (Bld) [#/Vol] Ordered By: Boone Cortes on 06-04-2022 Monocytes (Bld) [#/Vol] 0.2 10*3/uL 0.0-0.8 [facility] Monocytes/100 WBC Auto (Bld) Ordered By: Boone Cortes on 06-04-2022 Monocytes/100 WBC (Bld) 2.6 % . [facility] Neutrophils Auto (Bld) [#/Vo l]Ordered By: Boone Cortes on 06-04-2022 Neutrophils (Bld) [#/Vol] 4.7 10*3/uL 1.8-7.7 [facility] Neutrophils/100 WBC Auto (Bl d)Ordered By: Boone Cortes on 06-04-2022 Neutrophils/100 WBC (Bld) 54.5 % . [facility] No Panel InformationOrdered By: Boone Cortes on 06-04-2022 Estimated GFR () > 60 mL/Min [facility] Comment on above: GFR estimated refere nce range: According to KDOQI guidelines, <60 ml/min/1.73m2 is sufficient to diagnose a patient with chronic kidney disease. Pharmacy Creatinine Clearance (Chem N/A [facility] Nucleated erythrocytes [Pres ence] in Blood by Automated countOrdered By: Boone Cortes on 06-04-2022 Nucleated RBC Auto Ql (Bld) 0.2 /100{WBC} 0-0.5 [facility] Platelet mean volume Auto (B ld) [Entitic vol]Ordered By: Boone Cortes on 06-04-2022 Platelet mean volume (Bld) [Entitic vol] 7.8 fL 6.3-10.7 [facility] Platelets [#/volume] in Bloo d by Automated countOrdered By: Boone Cortes on 06-04-2022 Platelets (Bld) [#/Vol] 414 10*3/uL 150-450 [facility] Protein [Mass/volume] in Ser um or PlasmaOrdered By: Boone Cortes on 06-04-2022 Protein [Mass/Vol] 7.0 g/dL 6.1-7.9 [facility] Serum or plasma alanine grant otransferase measurement without P-5'-P (enzymatic activiOrdered By: Boone Cortes on 06-04-2022 ALT No additional P-5'-P [Catalytic activity/Vol] 27 U/L 10-60 [facility] Serum or plasma albumin/glob ulin mass ratioOrdered By: Boone Cortes on 06-04-2022 Albumin/Globulin [Mass ratio] 1.3 {ratio} [facility] Serum or plasma alkaline moy sphatase measurement (enzymatic activity/volume)Ordered By: Boone Cortes on 06-04-2022 ALP [Catalytic activity/Vol] 99 U/L 32-92 [facility] Serum or plasma anion gap de terminationOrdered By: Boone Cortes on 06-04-2022 Anion gap [Moles/Vol] 11.4 [facility] or plasma aspartate am inotransferase measurement (enzymatic activity/volume)Ordered By: Boone Cortes on 06-04-2022 AST [Catalytic activity/Vol] 19 U/L 10-42 [facility] Serum or plasma calcium nancy urement (mass/volume)Ordered By: Boone Cortes on 06-04-2022 Calcium [Mass/Vol] 9.2 mg/dL 8.2-10.2 [facility] Serum or plasma chloride jarad surement (moles/volume)Ordered By: Boone Cortes on 06-04-2022 Chloride [Moles/Vol] 106 mmol/L 95-114 [facility] Serum or plasma glucose nancy urement (mass/volume)Ordered By: Boone Cortes on 06-04-2022 Glucose [Mass/Vol] 116 mg/dL 70-100 [facility] Comment on above: ADA recommended refe rence rangeRandom Glucose Reference Range is dependent on time and content of last meal. Glucose of more than 200 mg/dL in a nonstressed, ambulatory subject supports the diagnosis of Diabetes Mellitus. Serum or plasma high density lipoprotein (HDL) cholesterol measurementOrdered By: Boone Cortes on 06-04-2022 Cholesterol in HDL [Mass/Vol] 32 mg/dL 35-85 [facility] Comment on above: HDL CHOL ATP-III CLA SSIFICATION Cardiovascular RiskHDL > or equal to 60 mg/dL LOWHDL < 40 mg/dL HIGH Serum or plasma potassium me asurement (moles/volume)Ordered By: Boone Cortes on 06-04-2022 Potassium [Moles/Vol] 3.9 mmol/L 3.5-5.1 [facility] Serum or plasma sodium measu rement (moles/volume)Ordered By: Boone Cortes on 06-04-2022 Sodium [Moles/Vol] 138 mmol/L 136-146 [facility] Serum or plasma total biliru bin measurement (mass/volume)Ordered By: Boone Cortes on 06-04-2022 Bilirubin [Mass/Vol] 0.2 mg/dL 0.3-1.2 [facility] Serum or plasma total carbon dioxide measurement (moles/volume)Ordered By: Boone Cortes on 06-04-2022 CO2 [Moles/Vol] 24.5 mmol/L 22.0-30.0 [facility] Serum or plasma total choles terol/high density lipoprotein (HDL) cholesterol mass ratOrdered By: Boone Cortes on 06-04-2022 Cholesterol.total/Cho lesterol in HDL [Mass ratio] 8.8 {ratio} <5.0 [facility] Serum or plasma urea nitroge n measurement (mass/volume)Ordered By: Boone Cortes on 06-04-2022 Urea nitrogen [Mass/Vol] 11 mg/dL 9-23 [facility] TSH DL <= 0.005 mIU/L QnOrde red By: Boone Cortes on 06-04-2022 TSH Qn 6.55 m[IU]/L 0.45-5.33 [facility] Thyroid Stimulating Hormoneo n 06-04-2022 TSH Qn 6.26981514231 m[IU]/L High 0.45-5 .33 u[iU]/mL [facility] Other Triglyceride [Mass/volume] i n Serum or PlasmaOrdered By: Boone Cortes on 06-04-2022 Triglyceride [Mass/Vol] 326 mg/dL 35-149 [facility] Comment on above: TRIG ATP III CLASSIF ICATIONTRIG less than 150 mg/dL NormalTRIG 150-199 mg/dL Borderline highTRIG 200-500 mg/dL High TRIG greater than 500 mg/dL Very highStandard traceable to the Center for Disease Conrtrol and Prevention (CDC) test method. WBC Auto (Bld) [#/Vol]Ordere d By: Boone Cortes on 06-04-2022 WBC (Bld) [#/Vol] 8.6 10*3/uL 3.8-11.6 [facility] COVID + FLU Quick Testingon 05-26-2022 SARS-CoV-2 (COVID-19) RNA MICHELLE+probe Ql (Unsp spec) Negative [facility] Other COVID + FLU Quick Testing Negative [facility] Other Quick Strepon 05-26-2022 S. pyogenes Org specific cx Ql (Throat) Negative [facility] Other Quick Strep [facility] Other COVID + FLU Quick Testingon 04-28-2021 SARS-CoV-2 (COVID-19) RNA MICHELLE+probe Ql (Unsp spec) Positive [facility] Other COVID + FLU Quick Testing Negative [facility] Other COVID + FLU Quick Testing Positive [facility] Other ACID FAST SMEAR AND CXon Acid Fast Culture Negative Normal [facility] Comment on above: Result Comment: No a tomas fast bacilli isolated after 6 weeks. Performed By: #### L YMA #### [facility] [address] [address] [place] Acid Fast Smear Negative Normal [facility] Comment on above: Performed By: #### L YMA #### [facility] [address] [place] [address] [employer] [employer] Specimen Processing Concentration Normal [facility] Comment on above: Performed By: #### L YMA #### [facility] [address] [place] [address] [place]ga Patricia FUNGAL CULTUREon 03-08-2020 Fungus (Mycology) Culture Final report Normal [facility] Comment on above: Performed By: #### C XFUN #### [facility] [address] [place] [address] [place] Fungus Stain Final report Normal [facility] Comment on above: Performed By: #### C XFUN #### [facility] [address] [place] [address] [place] Result 1 Comment Normal [facility] Comment on above: Result Comment: LEO/ Calcofluor preparation: no fungus observed. Performed By: #### C XFUN #### [facility] [address] [place] [address] [place] Result Comment: No y east or mold isolated after 4 weeks. MuSK ANITBODY TESTon 020 MuSK Antibodies <1.0 Normal [facility] Comment on above: Result Comment: Refe rence Range: Negative: <1.0 Positive: 1.0 or higher A positive result, in the context of congruent clinical findings, confirms the diagnosis of autoimmune MuSK myasthenia gravis. COMMENTS: - Myasthenia gravis (MG) is caused by auto-antibodies against proteins of the neuromuscular junction. Most cases (about 90%) of generalized MG are anti- acetylcholine receptor (AChR) antibody-positive.(1) - Of generalized MG patients who lack anti-AChR antibodies (AChR-seronegative), about 40% are positive for Muscle- Specific Kinase (MuSK) antibody.(1,2) - Though a positive MuSK result is specific for the diagnosis of MuSK MG, a negative MuSK result does not rule out a MG diagnosis. - MuSK antibody levels have been shown to correlate with disease severity.(3) Serial measurements may be useful to follow treatment. References: 1. Yevgeniy-Santos S et al. J Autoimmunity 2014;52:90-100. 2. [place] RICHARDSON et al. PNAS 2013;110(14);30123-90252. 3. Luanne E et al. Neurology 2006;67:505-507. This test was developed and its performance characteristics determined by [employer]. It has not been cleared or approved by the Food and Drug Administration. Performed By: #### M USKAB #### [facility] [address] [place] [address] [place] CULTURE OTHERon 02-08-2020 CULTURE OTHER Culture Observations : NORMAL RESPIRATORY REBECA Normal [facility] Comment on above: Performed By: #### L YMA #### [facility] [address] [place] [address] [place] GRAM STAINon 02-08-2020 DIPHTHEROIDS Normal [facility] Comment on above: Performed By: #### G STAIN #### [facility] [address] [place] [address] [place] EPITHELIALS Normal [facility] Comment on above: Performed By: #### G STAIN #### [facility] [address] [place] [address] [place] FUNGAL ELEMENTS Normal [facility] Comment on above: Performed By: #### G STAIN #### [facility] [address] [place] [address] [place] GRAM NEG BACILLI Normal [facility] Comment on above: Performed By: #### G STAIN #### [facility] [address] [place] [address] [place] GRAM NEG DIPPLOCOCCI Normal [facility] Comment on above: Performed By: #### G STAIN #### [facility] [address] [place] [address] [place] GRAM POS BACILLI FEW Normal [facility] Comment on above: Performed By: #### G STAIN #### [facility] [address] [place] [address] [place] GRAM POSITIVE COCCI MODERATE Normal [facility] Comment on above: Performed By: #### G STAIN #### [facility] [address] [place] [address] [place] GRAM STAIN SOURCE RIGHT LOWER LOBE BAL Normal [facility] Comment on above: Performed By: #### G STAIN #### [facility] [address] [place] [address] [place] GS_DIPTH Normal [facility] Comment on above: Performed By: #### G STAIN #### [facility] [address] [place] [address] [place] WBC MANY Normal [facility] Comment on above: Performed By: #### G STAIN #### [facility] [address] [place] [address] [place] BORDETELLA PERTUSSIS AB IGGo n 02-06-2020 B pertussis IgG Ab 1.42 index Critically high 0.00-0.94 [facility] Comment on above: Result Comment: Nega tive <0.95 Equivocal 0.95 - 1.04 Positive >1.04 Performed By: #### L YMA #### [facility] [address] [place] [address] [place] BORDETELLA PERTUSSIS AB IGMo n 02-06-2020 B pertussis IgM Ab <1.0 Normal 0.0-0.9 [facility] Comment on above: Result Comment: Nega tive <1.0 Borderline 1.0 - 1.1 Positive >1.1 Performed By: #### B ORDIGM #### [facility] [address] [place] [address] [place] C-REACTIVE PROTEINS (HS)on 1 C-Reactive Protein, Cardiac 4.90 mg/L Critically high 0.00-3.00 [facility] Comment on above: Result Comment: Rela tive Risk for Future Cardiovascular Event Low <1.00 Average 1.00 - 3.00 High >3.00 Performed By: #### C [facility] #### [facility] [address] [place] [address] Olga Patricia COVID-19 PCRon 02-03-2020 SARS-CoV-2 (COVID-19) RNA MICHELLE+probe Ql (Unsp spec) Not detected Normal Not Detected [facility] Comment on above: Result Comment: This nucleic acid amplification test was developed and its performance characteristics determined by [employer]. Nucleic acid amplification tests include PCR and TMA. This test has not been FDA cleared or approved. This test has been authorized by FDA under an Emergency Use Authorization (EUA). This test is only authorized for the duration of time the declaration that circumstances exist justifying the authorization of the emergency use of in vitro diagnostic tests for detection of SARS-CoV-2 virus and/or diagnosis of COVID-19 infection under section 564(b)(1) of the Act, 21 U.S.C. 360bbb-3(b) (1), unless the authorization is terminated or revoked sooner. When diagnostic testing is negative, the possibility of a false negative result should be considered in the context of a patient's recent exposures and the presence of clinical signs and symptoms consistent with COVID-19. An individual without symptoms of COVID-19 and who is not shedding SARS-CoV-2 virus would expect to have a negative (not detected) result in this assay. Performed By: #### L YM #### [facility] [address] [place] [address] [place] LYME DISEASE AB, TOTAL AND I GM W/WB REFEon 02-03-2020 Lyme Disease Ab, Quant, IgM <0.80 Normal 0.00-0.79 [facility] Comment on above: Result Comment: Nega tive <0.80 Equivocal 0.80 - 1.19 Positive >1.19 . IgM levels may peak at 3-6 weeks post infection, then gradually decline. Performed By: #### L YMA #### [facility] [address] [place] [address] Olga Patricia Lyme IgG/IgM Ab <0.91 Normal 0.00-0.90 [facility] Comment on above: Result Comment: Nega tive <0.91 Equivocal 0.91 - 1.09 Positive >1.09 Performed By: #### L YMA #### [facility] [address] [place] [address] [place] PRIORITY COVID PROCESSINGon 02-03-2020 Comment Comment Normal [facility] Comment on above: Result Comment: Rece ived Performed By: #### L YMA #### [facility] [address] [place] [address] [place] CPKon 02-01-2020 CK [Catalytic activity/Vol] 102 U/L Normal 30-135 [facility] Comment on above: Performed By: #### C K #### [facility] [address] [place] [address] [place] LAB TESTINGon 02-01-2020 RECV HEADER SEE SCANNED REPORT IN HPF Normal [facility] Comment on above: Performed By: #### M ISC #### [facility] [address] [place] [address] [place] REV FROM REF LAB 02/14/2020 Normal [facility] Comment on above: Performed By: #### M ISC #### [facility] [address] [place] [address] [place] Be[place] SENT TO REF LAB 02/02/2020 Normal [facility] Comment on above: Performed By: #### M ISC #### [facility] [address] [place], [place] [id number] [place] SED RATE WESTERGREN 2019 SED RATE 43 mm/hr Critically high <=30 [facility] Comment on above: Performed By: #### S EDR #### [facility] [address] [place] [address] [place] SEDRH METHOD AND NORMAL CH TEE 05/24/15. RESULTS ARE NOT AFFECTED BY HEMATOCRIT. Normal [facility] Comment on above: Performed By: #### S EDR #### [facility] [address] [place] [address] CHEST HI RESOLUTIONon CT CHEST HI RESOLUTION EXAMINATION: CT CHEST HI RESOLUTION HISTORY: Cough ; chronic cough and congestion COMPARISON: No relevant comparison available. TECHNIQUE: Axial images were obtained at 10 mm intervals during inspiration and expiration in the supine and prone positions. No IV contrast given. Dose reduction techniques were achieved by using automated exposure control and/or adjustment of mA and/or kV according to patient size and/or use of iterative reconstruction technique. FINDINGS: LUNGS: No significant chronic interstitial changes, bronchiectasis, COPD, edema, or acute infiltrates. PLEURA: No mass, effusion, or pneumothorax. MARLENE: No mass or adenopathy. MEDIASTINUM: No mass or adenopathy. CHEST WALL: No mass or axillary adenopathy LIMITED ABDOMEN: No suspicious findings. Limited images of the upper abdomen. OTHER: Negative. IMPRESSION: 1. No significant chronic interstitial changes. 2. No acute infiltrates. Electronically authenticated by: DANIKA GOODRICH Date: 2020-01-30 14:56 Normal [facility] HEMOGLOBINon 12-29-2019 Hemoglobin (Bld) [Mass/Vol] 13.5 g/dL Normal 12.0-16.0 [facility] Comment on above: Performed By: #### H GB #### [facility] [address] [place] [id number] [place] Vital Signs Date Time Vital Sign Value Performing Clinician Ebenezer vences 02-09-2024 15:32-0400 Body height 162.6 cm [employer] Work Phone: [facility] 02-09-2024 15:32-0400 Body mass index (BMI) [Ratio] 30.38 kg/m2 [employer] DO Work Phone: [facility] 02-09-2024 15:32-0400 Body weight 80.29 kg [employer] DO Work Phone: [facility] 02-09-2024 15:32-0400 Diastolic blood pressure 78 mm[Hg] EduquiazSnapOnetz DO Work Phone: [facility] 02-09-2024 15:32-0400 Systolic blood pressure 124 mm[Hg] Orestes Sanchez DO Work Phone: [facility] 12-01-2023 14:49-0400 Body height 162.56 cm [facility] 12-01-2023 14:49-0400 Body mass index (BMI) [Ratio] 30.4 kg/m2 [facility] 12-01-2023 14:49-0400 Body weight 80.28 kg [facility] 12-01-2023 14:49-0400 Diastolic blood pressure 70 mm[Hg] [facility] 12-01-2023 14:49-0400 Heart rate 78 /min [facility] 12-01-2023 14:49-0400 Respiratory rate 16 /min [facility] 12-01-2023 14:49-0400 SaO2% (BldA) [Mass fraction] 99 % [facility] 12-01-2023 14:49-0400 Systolic blood pressure 130 mm[Hg] [facility] 01-27-2023 15:30-0400 Body height 162.56 cm [employer] Other [facility] Other 01-27-2023 15:30-0400 Body mass index (BMI) [Ratio] 31.07 kg/m2 [facility] [employer] Other [facility] Other 01-27-2023 15:30-0400 Body weight 82.1 kg [facility] [employer] Other [employer] Other 01-27-2023 15:30-0400 Diastolic blood pressure 90 mm[Hg] [facility] [employer] Other [employer] Other 01-27-2023 15:30-0400 Respiratory rate 16 /min [facility] [employer] Other [employer] [facility] Other 01-27-2023 15:30-0400 SaO2% (BldA) [Mass fraction] 97 % [facility]one [employer] Other [employer] Other 01-27-2023 15:30-0400 Systolic blood pressure 130 mm[Hg] Boone Kuns Other [employer] Other 07-29-2022 15:45-0400 Body height 162.56 cm Boone Kuns Other [employer] Other 07-29-2022 15:45-0400 Body mass index (BMI) [Ratio] 30.38 kg/m2 Boone Kuns Other [employer] Other 07-29-2022 15:45-0400 Body weight 80.29 kg Boone Kuns Other [employer] Other 07-29-2022 15:45-0400 Diastolic blood pressure 70 mm[Hg] Boone Kuns Other [employer] Other 07-29-2022 15:45-0400 Respiratory rate 16 /min Boone Kuns Other [employer] Other 07-29-2022 15:45-0400 SaO2% (BldA) [Mass fraction] 97 % Boone Kuns Other [employer] Other 07-29-2022 15:45-0400 Systolic blood pressure 110 mm[Hg] Boone Kuns Other [employer] Other 06-04-2022 08:30-0500 Body height 162.56 cm Boone Kuns Other [employer] Other 06-04-2022 08:30-0500 Body mass index (BMI) [Ratio] 30.55 kg/m2 Boone [employer] Other [employer] Other 06-04-2022 08:30-0500 Body temperature 97.2 [degF] Boone Kuns Other [employer] Other 06-04-2022 08:30-0500 Body weight 80.74 kg Boone Kuns Other [employer] Other 06-04-2022 08:30-0500 Diastolic blood pressure 68 mm[Hg] Boone Kuns Other [employer] Other 06-04-2022 08:30-0500 Respiratory rate 16 /min Boone Kuns Other [employer] Other 06-04-2022 08:30-0500 SaO2% (BldA) [Mass fraction] 96 % Boone Kuns Other [employer] Other 06-04-2022 08:30-0500 Systolic blood pressure 126 mm[Hg] Boone Kuns Other [employer] Other 12-10-2021 16:15-0400 Body height 162.56 cm Boone Kuns Other [employer] Other 12-10-2021 16:15-0400 Body mass index (BMI) [Ratio] 29.86 kg/m2 Boone Kuns Other [employer] Other 12-10-2021 16:15-0400 Body weight 78.93 kg Boone Kuns Other [facility] Other 12-10-2021 16:15-0400 Diastolic blood pressure 80 mm[Hg] Boonerobert Handleys Other [employer] Other 12-10-2021 16:15-0400 Respiratory rate 16 /min Boonerobert Handleys Other [employer] Other 12-10-2021 16:15-0400 SaO2% (BldA) [Mass fraction] 99 % Boonerobert Handleys Other [employer] Other 12-10-2021 16:15-0400 Systolic blood pressure 126 mm[Hg] Boone Enders Other [employer] Other 05-14-2021 14:45-0500 Body height 162.56 cm Phong Mitchell Other [employer] Other 05-14-2021 14:45-0500 Body mass index (BMI) [Ratio] 29.86 kg/m2 Phong Paula Other [employer] Other 05-14-2021 14:45-0500 Body weight 78.93 kg Phong Mitchell Other [employer] Other 03-27-2021 15:15-0500 Body height 162.56 cm Gerhard Nunez Other [employer] Other 03-27-2021 15:15-0500 Body mass index (BMI) [Ratio] 29.69 kg/m2 Gerhard Salasdano Other [employer] Other 03-27-2021 15:15-0500 Body temperature 98 [degF] Gerhard Nunez Other [employer] Other 03-27-2021 15:15-0500 Body weight 78.47 kg Gerhard Patelno Other [facility] Other 03-27-2021 15:15-0500 Diastolic blood pressure 86 mm[Hg] Gerhard Salasdano Other [employer] Other 03-27-2021 15:15-0500 Respiratory rate 20 /min Gerhard Patelno Other [employer] Other 03-27-2021 15:15-0500 SaO2% (BldA) [Mass fraction] 100 % Gerhard Patelno Other [facility] Other 03-27-2021 15:15-0500 Systolic blood pressure 148 mm[Hg] Gerhard Patelno Other [facility] Other 03-05-2021 14:45-0500 Body height 162.56 cm Phong Paula Other [facility] Other 03-05-2021 14:45-0500 Body mass index (BMI) [Ratio] 29.52 kg/m2 Phong Paula Other [employer] Other 03-05-2021 14:45-0500 Body weight 78.02 kg Phong Paula Other [employer] Other 01-15-2021 13:30-0400 Body height 162.56 cm Phong Paula Other [employer] Other 01-15-2021 13:30-0400 Body mass index (BMI) [Ratio] 29.52 kg/m2 Phong Paula Other [employer] Other 01-15-2021 13:30-0400 Body weight 78.02 kg Phong Mitchell Other [employer] Other Encounters Encounter Date Encounter Type Care Provider Facility Start: 02-09-2024 End: 02-09-2024 Office outpatient new 60 minutes Orestes Lebron Daniel DO Work Phone: [facility] Comment on above: Mass of upper outer quadrant of right breast (Primary Dx) Start: 02-09-2024 End: 02-09-2024 ambulatory ORESTES Lebron DANIEL Not Available Start: 02-02-2024 End: 02-02-2024 Patient encounter procedure DO Boonerobert Handleys Work Phone: [facility] Start: 02-02-2024 End: 02-02-2024 ambulatory DO Boone Enders Work Phone: [facility] Work Phone: Start: 02-02-2024 Non-patient / Non-visit DO Clare tt Kuns Work Phone: [facility] Work Phone: Start: 01-05-2024 ambulatory UNKNOWN PROVIDER Facili ty:[facility] Start: 12-27-2023 End: 12-27-2023 ambulatory Chris Shah MD Facility: [facility] Start: 12-01-2023 End: 12-01-2023 ambulatory [facility] Work Phone: Start: 12-01-2023 End: 12-01-2023 [facility] Work Phone: Start: 11-24-2023 End: 11-24-2023 ambulatory [facility] Not Available Start: 07-20-2023 End: 07-20-2023 Patient encounter procedure DO Boone Kuns Work Phone: [facility] [place] Work Phone: Start: 07-20-2023 End: 07-20-2023 ambulatory DO Boone Kuns Work Phone: [facility] Work Phone: Start: 05-20-2023 End: 05-20-2023 ambulatory Boone Kuns Other [employer] Other Start: 05-20-2023 Telephone encounter Boone Kuns [facility] Start: 04-27-2023 End: 04-27-2023 ambulatory Boone Kuns Other [employer] Other Start: 04-27-2023 Nursing evaluation o f patient and report Boone Kuns [facility] Start: 04-27-2023 Telephone encounter Boone Kuns [facility] Start: 04-27-2023 Patient encounter procedure DO Boone Kuns Work Phone: [facility]- Start: 03-17-2023 End: 03-17-2023 ambulatory Boone Kuns Other [facility] Other Start: 03-17-2023 Telephone encounter Boone Kuns [facility] Start: 01-27-2023 End: 01-27-2023 ambulatory Boone Kuns Other [employer] Other Start: 01-27-2023 Office outpatient vi sit 25 minutes [facility] Start: 01-25-2023 End: 01-25-2023 Patient encounter procedure DO Boone Kuns Work Phone: [facility] [place] Work Phone: Start: 01-25-2023 End: 01-25-2023 ambulatory DO Boone Kuns Work Phone: [facility] Work Phone: Start: 01-25-2023 Telephone encounter Boone Kuns [facility] Start: 12-30-2022 End: 12-30-2022 ambulatory Boone Kuns Other [employer] Other Start: 12-30-2022 Telephone encounter Boone Kuns [facility] Start: 12-24-2022 End: 12-24-2022 ambulatory Boone Kuns Other [facility] Other Start: 12-24-2022 Nursing evaluation o f patient and report Boone Kuns [facility] Start: 12-24-2022 Telephone encounter Boone Kuns [facility] Start: 08-15-2022 End: 08-15-2022 ambulatory DO Boone Kuns Work Phone: [facility] Work Phone: Start: 08-15-2022 End: 08-15-2022 Patient encounter procedure DO Boone Kuns Work Phone: [facility] [place] Work Phone: Start: 08-06-2022 End: 08-06-2022 ambulatory Boone Kuns Other [employer] Other Start: 08-06-2022 Telephone encounter Boone Kuns [facility] Start: 07-30-2022 End: 07-30-2022 Patient encounter procedure DO Boone Kuns Work Phone: [facility] [place] Work Phone: Start: 07-29-2022 End: 07-29-2022 ambulatory Boone Kuns Other [employer] Other Start: 07-29-2022 Office outpatient vi sit 25 minutes Boone Kuns [facility] Start: 07-13-2022 End: 07-13-2022 ambulatory Boone Kuns Other [employer] Other Start: 07-13-2022 Telephone encounter Boone Kuns [facility] Start: 07-01-2022 End: 07-01-2022 ambulatory Boone Kuns Other [employer] Other Start: 07-01-2022 Telephone encounter Boone Kuns [facility] Start: 06-30-2022 End: 06-30-2022 ambulatory Boone Kuns Other [employer] Other Start: 06-30-2022 Telephone encounter Boone Kuns [facility] Start: 06-09-2022 End: 06-09-2022 ambulatory DO Boone Kuns Work Phone: [facility] Work Phone: Start: 06-09-2022 End: 06-09-2022 Patient encounter procedure DO Booen Kuns Work Phone: [facility] [place] Work Phone: Start: 06-04-2022 Office outpatient vi sit 25 minutes Boone Kuns [facility] Start: 06-04-2022 End: 06-04-2022 ambulatory DO Boone Kuns Work Phone: [facility] Work Phone: Start: 06-04-2022 End: 06-04-2022 Patient encounter procedure DO Boone Kuns Work Phone: [facility] [place] Work Phone: Start: 06-03-2022 End: 06-03-2022 ambulatory Boone Kuns Other [employer] Other Start: 06-03-2022 Telephone encounter Boone Kuns [facility] Start: 05-26-2022 End: 05-26-2022 ambulatory Boone Kuns Other [employer] Other Start: 05-26-2022 Nursing evaluation o f patient and report Boone Kuns [facility] Start: 05-26-2022 Telephone encounter Boone Kuns [facility] Start: 12-29-2021 End: 12-29-2021 ambulatory Boone Kuns Other [employer] Other Start: 12-29-2021 Telephone encounter Boone Kuns [facility] Start: 12-10-2021 End: 12-10-2021 ambulatory Boone Kuns Other [employer] Other Start: 12-10-2021 Office outpatient vi sit 15 minutes Boone Kuns [facility] Start: 11-03-2021 End: 11-03-2021 ambulatory Boone Kuns Other [employer] Other Start: 11-03-2021 Telephone encounter Boone Kuns [facility] Start: 10-08-2021 End: 10-08-2021 ambulatory Boone Kuns Other [employer] Other Start: 10-08-2021 Telephone encounter Boone Kuns [facility] Start: 10-06-2021 End: 10-06-2021 ambulatory Boone Kuns Other [employer] Other Start: 10-06-2021 Telephone encounter Boone Kuns [facility] Start: 07-10-2021 End: 07-10-2021 ambulatory Boone Kuns Other [employer] Other Start: 07-10-2021 Telephone encounter Boone Kuns [facility] Start: 06-27-2021 End: 06-27-2021 ambulatory Phong Mitchell Other [employer] Other Start: 06-27-2021 Office outpatient vi sit 15 minutes Phong Mitchell [facility] Start: 05-14-2021 End: 05-14-2021 ambulatory Phong Mitchell Other [employer] Other Start: 05-14-2021 Office outpatient vi sit 15 minutes Phong Mitchell [facility] Start: 04-28-2021 End: 04-28-2021 ambulatory Phong Mitchell Other [employer] Other Start: 04-28-2021 Nursing evaluation o f patient and report Boone Cortes [facility] Start: 04-28-2021 Telephone encounter Phong Taylor [facility] Start: 03-27-2021 End: 03-27-2021 ambulatory Gerhard Nunez Other [facility] Other Start: 03-27-2021 Office outpatient ne w 45 minutes Gerhard Nunez [facility] Start: 03-05-2021 End: 03-05-2021 ambulatory Phong Mitchell Other [employer] Other Start: 03-05-2021 Postop follow up vis it related to original px Phong Mitchell [facility] Start: 02-12-2021 Postop follow up vis it related to original px Phong Mitchell [facility] Start: 02-10-2021 Telephone encounter Boone Cortes [facility] Start: 01-27-2021 Telephone encounter Boone Cortes [facility] Start: 01-24-2021 Telephone encounter Phong Taylor [employer] Start: 01-15-2021 Office outpatient ne w 45 minutes Phong Mitchell [facility] Start: 02-08-2020 End: 02-08-[address] BOONE CORTES Facility:[facility] Start: 02-05-2020 Encounter for preprocedural laboratory examination VERÓNICA TAYLOR [facility] Start: 02-02-2020 End: 02-03-[address] BOONE CORTES Facility:[facility] Start: 02-02-2020 End: 02-03-2020 Encounter for preprocedural laboratory examination DR BOONE CORTES Facility:[facility] Start: 02-01-2020 End: 02-02-[address] BOONE CORTES Facility:[facility] Start: 01-30-2020 End: 01-31-[address] DANIKA GOODRICH Facility:[facility] Start: 12-29-2019 End: 12-30-[address] BOONE CORTES Facility:[facility] Start: 07-21-2018 Patient encounter procedure BOONE CORTES Facility:[id number] Start: 07-21-2018 Patient encounter procedure Facility:[id number] Procedures Date Procedure Procedure Detail Performing Clinician Start: 02-02-2024 Mammography of right breast DO Boone Cortes Work Phone: Start: 02-02-2024 Ultrasonography of right breast DO Boone Cortes Work Phone: Start: 07-20-2023 Plain chest X-ray DO Boone Cortes Work Phone: Start: 07-20-2023 Respiratory Panel (PCR) DO Boonerobert Cortes Work Phone: Start: 01-25-2023 X-ray of left ankle DO Boone Cortes Work Phone: Start: 08-15-2022 Ultrasonography of bilateral kidneys DO Boone Cortes Work Phone: History of operative procedure on knee S/P arthroscopic knee surgery DO Boone Cortes Work Phone: Plan of Treatment Date Care Activity Detail Author Start: 12-01-2023 Patient referral [facility] Work Phone: Comprehensive metabo lic 2000 panel - Serum or Plasma [facility] Patient referral [facility] Work Phone: Thyroglobulin Ab [Un its/volume] in Serum or Plasma [facility] Thyroperoxidase Ab [ Units/volume] in Serum or Plasma [facility] Immunizations Immunization Date Immunization Notes Care Provider Kellen [email or web address] 09-20-2020 Toradol 30 mg/ml Phong Gema ey Other [facility] Other 08-21-2020 Toradol per 15 mg Phong Yandel micheal Other [facility] Other 10-18-2019 influenza, seasonal, injectable Patient Objection Phong Paula Other [facility] Other 06-10-2018 influenza, seasonal, injectable Phong Paula Other [facility] Other 01-09-2015 Toradol per 15 mg Phong Yandel micheal Other [facility] Other NEGATED: Highlighted row has not occurred!10-18-2019 influenza, seasonal, injectable Patient Objection Phong Paula Other [facility] Other NEGATED: Highlighted row has not occurred!06-10-2018 influenza, seasonal, injectable Phong Paula Other [facility] Other Payers Date Payer Category Payer [facility] Health Insurance [facility] [id number] 2023 Unknown 2022 Unknown [id number] 1967 Unknown [id number] [id number]. 2.356 1967 Unknown [id number] 2.16.840.1.014202.3.579. 2.355 1967 Unknown [id number] 2.16.840.1.571479.3.579. 2.593 1967 Unknown [id number] 2.16.840.1.143196.3.579. 2.593 1967 Unknown [id number] 2.16.840.1.357073.3.579. 2.593 1967 Unknown [id number] 2.16.840.1.734671.3.579. 2.593 1967 Unknown [id number] 2.16.840.1.297776.3.579. 2.593 1967 Unknown [id number] 2.16.840.1.170565.3.579. 2.196 1967 Unknown [id number] 2.16.840.1.263739.3.579. 2.732 1967 Unknown [id number] 2.16.840.1.120137.3.579. 2.1259 1967 Unknown [id number] 2.16.840.1.035446.3.579. 2.1259 1967 Unknown [id number] 2.16.840.1.884891.3.579. 2.1259 1959 Unknown [id number] Self-pay Self Pay [id number] Social History Date Type Detail Facility Unknown if ever smoked [facility] Other Start: 02-09-2024 Sex Assigned At [facility] Other Start: 02-04-2021 End: 02-09-2024 Tobacco smoking status NHIS Never smoked tobacco (finding) [facility] Start: 1965 Sex Assigned At Female F [facility] Start: 02-09-2024 Tobacco use and exposure Smokeless tobacco non-user [facility] Start: 02-09-2024 Alcoholic beverage intake Current drinker of alcohol (finding) [facility] Start: 02-09-2024 History of Social function [facility] Start: 1965 Sex assigned at Not on file [facility] Clinical Notes 01-29-2015 to 02-09-2024 Orestes Lebron Daniel, DO - 02/09/2024 3:30 PM EDT Note Date & Type Note Facility 02-09-2024 History of Presen t illness Narrative Images from the original note were not included. Desiree Bolanos 1965 Desiree Bolanos is a 58 y.o. female presents with chief complaint of Breast consult (Bx already sched. For 02/09) HPI: HPI Desiree went for a mammogram but missed several years before this. She denies any breast masses, skin changes or nipple discharge. She denies any breast trauma. She states they found something in the right breast and Dr. Cortes ordered additional imaging. SUBJECTIVE: MEDICATIONS: ALLERGIES Current Outpatient Medications Medication Instructions albuterol (5 MG/ML) 0.5% nebulizer solution Nebulization, Every 6 hours PRN ibuprofen 800 mg, Oral, 3 times daily PRN methylPREDNISolone (Medrol Dospak) 4 MG tablets Follow schedule on package instructions pantoprazole (PROTONIX) 40 mg, Oral, 2 times daily Allergies Allergen Reactions Azithromycin Other Reaction(s): rapid heart rate, cardiac Sx Betamethasone Swelling Took steroids in Dec 2014 for back pain, then patient had swelling in her eyes and made her feel terrible, Gi upset, JAMES, irritable Fluticasone Furoate-Vilanterol Other Reaction(s): headache PAST MEDICAL HISTORY: SOCIAL HISTORY SURGICAL HISTORY: Past Medical History: Diagnosis Date Asthma (CMS/HCC) Hyperlipidemia (CMS/HCC) No past surgical history on file. FAMILY HISTORY No family history on file. REVIEW OF SYMPTOMS: Review of Systems Constitutional: Negative for diaphoresis and unexpected weight change. HENT: Negative for hearing loss, tinnitus and voice change. Respiratory: Negative for shortness of breath. Cardiovascular: Negative for chest pain and palpitations. Musculoskeletal: Negative for arthralgias. Neurological: Negative for dizziness, seizures and headaches. All other systems reviewed and are negative. Hematological: Negative for adenopathy. Does not bruise/bleed easily. OBJECTIVE: There were no vitals taken for this visit. Physical Exam Exam conducted with a authorization manager present. HENT: Head: Normocephalic. Cardiovascular: Rate and Rhythm: Normal rate and regular rhythm. Pulmonary: Effort: Pulmonary effort is normal. Breath sounds: Normal breath sounds. Chest: Comments: Bilateral supraclavicular, infraclavicular, bicipital and axillary lymph nodes were found to be normal. Each breast was examined in the sitting and supine position, there was no evidence of masses, dimpling or discharge in either breast Abdominal: General: Abdomen is flat. Bowel sounds are normal. Palpations: Abdomen is soft. Skin: General: Skin is warm and dry. Neurological: Mental Status: She is alert. ASSESSMENT AND PLAN: Assessment/Plan Problem List Items Addressed This Visit Mass of upper outer quadrant of right breast - Primary Desiree had a mammography on 01/05/24 that showed There is an irregular mass with associated calcifications in the upper outer quadrant of the right breast at middle depth. Finding 2 There is an abnormal lymph node in the right axilla. No suspicious masses, calcifications or other abnormalities are seen in the left breast. I discussed the findings and agree with the planned biopsy of the breast and the suspicious lymph node. I'll see her back to review the biopsy results. documented in this encounter [facility] 12-01-2023 Hospital Discharg e instructions Ambulatory OrdersReferral to Pain Management Time Frame: 12/01/23, Location: None [facility] Work Phone: 05-20-2023 Evaluation note Encounter Date Diagnosis Assessment Notes May, Sore throat (ICD-10 - J02.9) [facility] Other [id number] Evaluation note* Encounter Date Diagnosis Assessment Notes Treatment Notes Treatment Clinical Notes Apr, Body aches (ICD-10 - R52) Patient and provider aware of testing results. Per Dr. Shook she will be treated with both paxlovid and cefdinir. She is aware to hold her crestor for 10 days. Encouraged her to call if systems do not resolve. [facility] Other 11-29-2023 Evaluation note* Encounter Date Diagnosis Assessment Notes Treatment Notes Treatment Clinical Notes Feb, Strep throat (ICD-10 - J02.0) [facility] Other 10-11-2023 Evaluation note* Encounter Date Diagnosis Assessment Notes Treatment Notes Treatment Clinical Notes Jan, Hyperlipidemia (ICD-10 - E78.5) Patient is to continue with the above medication. Jan, Prediabetes (ICD-10 - R73.03) In house A1C reading of 6.1, an improvement from last check at 6.5. I did provide the patient with information on weekly injections to help with sugars and weight. We will continue to monitor. Did discuss with her GLP-1's for the possibility of sugar control and weight loss. She will look into this. Jan, Left ankle sprain (ICD-10 - S93.402A) Fall reported on 12/24/22 while the patient was going for a walk on the road, rolling her ankle. XR reviewed with the patient, noted No fracture or dislocation. Soft tissue swelling is noted over the lateral malleolus. Upon examination the patient does have visable brusing and swelling. Therefore, I provided the patient with a air ankle brace. I will cover the patient with a work note to be off 01/25/23 through 02/04/23. We will continue to monitor. [facility] Other 10-09-2023 Evaluation note* Encounter Date Diagnosis Assessment Notes Treatment Notes Treatment Clinical Notes Jan, Left ankle pain (ICD-10 - M25.572) [facility] Other 09-07-2023 Evaluation note* Encounter Date Diagnosis Assessment Notes Treatment Notes Treatment Clinical Notes Dec, Sore throat (ICD-10 - J02.9) Dec, Chest congestion (ICD-10 - R09.89) Dec, Acute nonintractable headache, unspecified headache type (ICD-10 - R51.9) [facility] Other 04-12-2023 Evaluation note* Encounter Date Diagnosis Assessment Notes Treatment Notes Treatment Clinical Notes Jul, Hyperlipidemia (ICD-10 - E78.5) I advised patient that in order to determine if the above medication needs to be adjusted, she needs to get the ordered blood work done. Orders provided again for her today. Also ordered blood work for her to complete in six months prior to her wellness exam. Refill e-scribed. Jul, GERD without esophagitis (ICD-10 - K21.9) Refill e-scribed. Patient states this medication does well to alleviate her reflux symptoms. Jul, Urinary frequency (ICD-10 - R35.0) In house urinalysis obtained due to patient having noticed urinary frequency. Small amount of hematuria was noted but was otherwise negative for any indication of an infection. Renal ultrasound ordered to update. Jul, Hyperglycemia (ICD-1 0 - R73.9) Blood work ordered to recheck as she has been off of the oral steroids for a while now and last hgb a1c was elevated at 6.3% 05/2022. Jul, Hematuria (ICD-10 - R31.9) Small amount of hematuria noted on in house urinalysis. Renal ultrasound ordered to update. Jul, Renal cyst (ICD-10 - Q61.00) Patient does have a history of renal cysts therefore due to her current complaint of urinary frequency and findings of hematuria, I suggest we update a renal ultrasoundas this has not been done since 02/2015. Patient is agreeable. Order provided. [facility] Other 02-16-2023 Evaluation note* Encounter Date Diagnosis Assessment Notes Treatment Notes Treatment Clinical Notes May, Acute sinusitis, recurrence not specified, unspecified location (ICD-10 - J01.90) Upon examination the ears are clear to the TM with no signs of infection or cerumen impaction. Lung sounds are normal upon auscultation, heart rate is normal and in rhythm.The patient complains of headache and pain in and above the eyes. As above the patient was negative for strep throat, COVID-19 and influenza on 05/28/22.Blood work recommend and ordered .I am in agreement with providing FMLA coverage from 06/01/22-06/10/22 to return to work 06/11/21. The patient encourged to complete the above antibiotic , increase fluid intake, throat lozenges or gargle with mouth wash as needed. Pt is to also take OTC pain medication and fever reducers as needed. May, Bronchitis (ICD-10 - J40) see acute sinusitis clincal notes. May, Hyperlipidemia (ICD-10 - E78.5) Blood work ordered. Encouraged to watch diet and increase exercise regimen; we will continue to monitor. May, Fatigue, unspecified type (ICD-10 - R53.83) Blood work ordered to rule out abnormalites. May, Diarrhea, unspecifie d type (ICD-10 - R19.7) Mild diarrhea reported by the patient , possibly secondary to oral antibiotic Amoxicillin. [facility] Other 02-07-2023 Evaluation note* Encounter Date Diagnosis Assessment Notes Treatment Notes Treatment Clinical Notes May, Sore throat (ICD-10 - J02.9) In house strep, covid, and flu test obtained with negative results. She was updated. Treatment instructions will be provided in a TE. [facility] Other 08-24-2022 Evaluation note* Encounter Date Diagnosis Assessment Notes Treatment Notes Treatment Clinical Notes Nov, Moderate persistent asthma, unspecified whether complicated (ICD-10 - J45.40) Patient did consult with Dr. 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 Nov, Chronic rhinitis (ICD-10 - J31.0) Encouraged patient to follow with Dr. Tilley as scheduled. [facility] Other 03-24-2022 Evaluation note* Encounter Date Diagnosis Assessment Notes Treatment Notes Treatment Clinical Notes Jun, Right knee pain, unspecified chronicity (ICD-10 - M25.561) 24 Jun, 2021 GERD without esophagitis (ICD-10 - K21.9) [facility] Other 03-11-2022 Evaluation note* Encounter Date Diagnosis Assessment Notes Treatment Notes Treatment Clinical Notes Jun, Other tear of lateral meniscus, current injury, right knee, subsequent encounter (ICD-10 - S83.281D) Desiree is here s/p right knee arthroscopy with partial lateral meniscectomy. At this juncture we have discussed the findings and diagnosis as well as personally reviewed appropriate imaging and performed interpretation of related testing and examination with the patient in office today. She will also continue her home exercise program which I agree with. Anti-inflammatories as needed. Follow-up as needed. We discussed and demonstrated gentle motion exercises as well as quadriceps and hamstring strengthening exercise. Patient instructed to continue taking NSAID as directed. We performed a cortisone injection into the knee joint under sterile technique. Patient tolerated the injection well without adverse reaction. Continue with use of knee brace. We discussed getting a compression sleeve as well today. Patient was given knee conditioning exercises today. Activity as tolerated. [facility] Other 01-26-2022 Evaluation note* Encounter Date Diagnosis Assessment Notes Treatment Notes Treatment Clinical Notes Apr, Other tear of lateral meniscus, current injury, right knee, subsequent encounter (ICD-10 - S83.281D) Desiree is here now 3 months s/p right knee arthroscopy with partial lateral meniscectomy. At this juncture we have discussed the findings and diagnosis as well as personally reviewed appropriate imaging and performed interpretation of related testing and examination with the patient in office today. At this point would continue physical therapy as she see fit. We have sent in nabumetone as an anti-inflammatory. I will plan to see her back as needed in the future Patient is progressing well from surgery. We discussed the importance of continuing to work on range of motion and strength exercise. Continue working with physical therapy. An perscription for an Lateral J brace was given today. Continue off of work at this time, may return to work on Jun 10, 2021. [facility] Other 01-10-2022 Evaluation note* Encounter Date Diagnosis Assessment Notes Treatment Notes Treatment Clinical Notes Apr, Headache (ICD-10 - R51.9) In house covid and flu test was positive. Patient is aware. [facility] Other 12-09-2021 Evaluation note* Encounter Date Diagnosis Assessment Notes Treatment Notes Treatment Clinical Notes Mar, Cough (ICD-10 - R05.9) Mar, GERD (gastroesophageal reflux disease) (ICD-10 - K21.9) Mar, Rhinitis (ICD-10 - J31.0) [facility] Other 11-17-2021 Evaluation note* Encounter Date Diagnosis Assessment Notes Treatment Notes Treatment Clinical Notes Feb, Other tear of lateral meniscus, current injury, right knee, subsequent encounter (ICD-10 - S83.281D) Desiree is here now 4 week s/p right knee arthroscopy with partial lateral meniscectomy. At this juncture we have discussed the findings and diagnosis as well as personally reviewed appropriate imaging and performed interpretation of related testing and examination with the patient in office today. At this point would continue physical therapy as she see fit. We have sent in nabumetone as an anti-inflammatory. I will plan to see her back in 6 weeks for final check Patient is progressing well from surgery. We discussed the importance of continuing to work on range of motion and strength exercise. [facility] Other 10-27-2021 Evaluation note* Encounter Date Diagnosis Assessment Notes Treatment Notes Treatment Clinical Notes Jan, Other tear of lateral meniscus, current injury, right knee, subsequent encounter (ICD-10 - S83.281D) Desiree is here now 1 week s/p right knee arthroscopy with partial lateral meniscectomy. At this juncture we have discussed the findings and diagnosis as well as personally reviewed appropriate imaging and performed interpretation of related testing and examination with the patient in office today. Today we have removed her sutures and instructed on wound care. I will give her Flexeril to help with this apparent gastroc spasm that she continues to suffer from. I will also give her a refill of pain medication. I have asked her to proceed with physical therapy at this time and return in 3 to 4 weeks for reevaluation. The patient has been involved in our cooperative treatment plan and agrees to move forward with treatment at this time. Patient is progressing well from surgery. We discussed the importance of continuing to work on range of motion and strength exercise. A prescription for Hydrocodone-acetam inophen was given today along with directions of use. Sutures were removed today patient tolerated well. A order for physical therapy was given today. Jan, Visit for suture removal (ICD-10 - Z48.02) Jan, Other The patient has been involved in our cooperative treatment plan and agrees to move forward with treatment at this time. [facility] Other 09-29-2021 Evaluation note* Encounter Date Diagnosis Assessment Notes Treatment Notes Treatment Clinical Notes Dec, Other tear of lateral meniscus of right knee as current injury, initial encounter (ICD-10 - S83.281A) Desiree presents with right knee medial meniscus tear. At this juncture we have discussed the findings and diagnosis as well as personally reviewed appropriate imaging and performed interpretation of related testing and examination with the patient in office today. Prior medical notes from Dr. Martinez and history have been reviewed. At this time I would recommend knee arthroscopy with meniscal debridement. We will plan for follow-up 1 week postoperatively and likely start therapy at that time. Desiree presents with right knee medial meniscal tear with failure of conservative treatment. At this juncture we have discussed the findings and diagnosis as well as reviewed appropriate imaging and performed interpretation of testing. Surgical intervention is recommended. Prior medical notes and history have been reviewed. Surgical versus non-operative management have been discussed in detail and non-operative management was given as an option. The risks of surgical intervention were given. Pre-operative optimization will be done prior to surgical procedure to limit kavitha-operative risks. I have discussed the planned procedure, how and who performs the procedure, and the personnel involved. Cardiovascular, pulmonary, and other life threatening episodes can occur during surgery although there is a low risk of these happening. Surgical risks including bleeding, neurovascular injury, wound closure problems and infection were discussed. Kavitha-operative risks including infection, bleeding, wound healing problems, and need for further surgery were discussed. It was discussed that there is a possibility of blood transfusion with any surgical procedure and the risks involved in receiving a blood transfusion. Possibility of, and need for, future bracing or DME use, physical or occupational therapy, mental therapy, rehabilitation, pain management and need for secondary procedures was discussed. I have warned against smoking and the use of tobacco products due to the risks associated with them, in particular, poor healing. I have advised against the detention use of narcotic pain medication. I have advised to follow all post-operative instructions in order to obtain the best outcome. Informed consent has been verbally affirmed and signed as indicated. The patient has been involved in our cooperative treatment plan and agrees to move forward with treatment at this time. We will plan on arthroscopy and menisectemy. We have discussed continued non-operative treatments including gentle exercise, use of medications and activity modification. Patient states that they would like to proceed with surgery at this time. We discussed the surgery process in detail including nothing by mouth 8 hrs prior to sugery, thorough washing of leg pior to coming to surgery. We discussed the multiple potential risks of anesthesia including respiratory, cardiac and patient positioning issues. We discussed the multiple risks of surgery particularly wound infection, deep venous thrombosis(DVT), persistent swelling, pain and stiffness after surgery, as well as worsening of pre-existing arthritic symptoms. Patient has agreed to understanding of these risks and would like to proceed.MRI results reviewed with patient as lateral meniscal tear. Discussed treatment options as conservative treatment consisting of cortisone injection and exercises, versus surgical treatment. Patient opts for surgical treatment at this time. Dec, Acute pain of right knee (ICD-10 - M25.561) Dec, Other Right knee medial meniscus tear, plan for arthroscopy Follow up in 1 week postop Continue mobilization without restrictions; this was encouraged and exercises were reviewed in the office today. See orders for this visit as documented in the electronic medical record. [facility] Other 10-13-2015 History general Narrative - Reported* Type Description Date Medical History hypoglycemia Medical History strong family hx of breast cance r & colon CA Medical History 01/29/15 Labs Medical History 01/31/15 MRI Lumbar Spine Medical History 03/12/15 Renal US Medical History 11/21/2019 Stress test Surgical History hysterectomy 2004 Surgical History Arthroscopic partial right late ral meniscectomy 02/03/21 Hospitalization History see above [facility] Other 10-13-2015 History general Narrative - Reported* Type Description Date Medical History hypoglycemia Medical History strong family hx of breast cance r & colon CA Medical History 01/29/15 Labs Medical History 01/31/15 MRI Lumbar Spine Medical History 03/12/15 Renal US Medical History 11/21/2019 Stress test Surgical History hysterectomy 2005 Hospitalization History see above [facility] Other Evaluation noteNo InformationNort[facility] Other Evaluation noteNo assessment information available [facility] Work Phone: Evaluation note* Diagnosis Onset Date Resolution Status Asthmatic bronchitis with acute exacerbation acute GERD without esophagitis acu te Radiculopathy, lumbar region acute Screening for colon cancer a [facility] Work Phone: evaluation note* Diagnosis Mass of upper outer quadrant of right breast- Primary documented in this encounter [facility] Summary Purpose Family History No Family History Records Found Relationship Condition Age at Onset Recorded Date/T kelly Not Specified Malignant neoplasm of breast Unknown Relationship Condition Age at Onset Recorded Date/T kelly Not Specified Malignant neoplasm of breast Unknown Not Specified Malignant neoplasm Unknown Relationship Condition Age at Onset Recorded Date/T kelly mother Malignant neoplasm of breast Unknown mother Malignant neoplasm Unknown Advance Directives No Advanced Directives Records Found Advance Directive Response Recorded Date/ Time Advance Directives No December 07, 2017 1:15pm Advance Directive Response Recorded Date/ Time Advance Directives No December 07, 2017 2:15pm Chief Complaint and Reason for Visit Chief Complaint E78.5 R79.89 e78.5 r73.9 R35.0 Chief Complaint M25.572 Chief Complaint r06.2 r05.9 Chief Complaint f/u urgent care/ fml a? Reason for Visit Asthmatic bronchitis with acute exacerbation GERD without esophagitis Radiculopathy, lumbar region Screening for colon cancer Chief Complaint f/u urgent care/ fml a? Amb Documentation R92.8 N63.10 Reason for Visit Asthmatic bronchitis with acute exacerbation GERD without esophagitis Radiculopathy, lumbar region Screening for colon cancer Additional Source Comments INFORMATION SOURCE (unrecogn ized section and content) DATE CREATED AUTHOR 07/24/2018 [facility] DATE CREATED AUTHOR AUTHOR'S ORGANIZ ATION 07/24/2018 [facility] DATE CREATED AUTHOR AUTHOR'S ORGANIZ ATION 12/24/2020 [facility] DATE CREATED AUTHOR AUTHOR'S ORGANIZ ATION 01/02/2024 [facility] DATE CREATED AUTHOR AUTHOR'S ORGANIZ ATION 01/26/2024 [facility] DATE CREATED AUTHOR AUTHOR'S ORGANIZ ATION 02/11/2024 [facility] EPIC DATE CREATED AUTHOR AUTHOR'S ORGANIZ ATION 02/12/2024 [facility] REASON FOR VISIT (unrecogniz ed section and content) Reason Comments Breast consult Bx already sched. Fo r 02/09 Care Teams (unrecognized sec tion and content) Team Status: Active Member Role Status Dates Boone Cortes DO Primary Care Provider Active Team Status: Inactive Member Role Status Dates Boone Cortes DO Primary Care Provide r, Attending Provider Active Start: December 01, 2023 End: December 01, 2023 Team Status: Active Member Role Status Dates Provider Conversion Attending Provider Active St art: April 27, 2023 Team Status: Inactive Member Role Status Dates Boone Cortes DO Primary Care Provide r, Attending Provider Active Start: July 20, 2023 End: July 20, 2023 Team Status: Inactive Member Role Status Dates Boone Cortes DO Primary Care Provider, Attending Provi darcy Active Team Status: Active Member Role Status Dates Boone Cortes DO Primary Care Provider Active Sta rt: February 02, 2024 GERRY Dinh Attending Provider Active Start: February 02, 2024 Team Status: Inactive Member Role Status Dates Boone Cortes DO Primary Care Provide r, Attending Provider Active Start: February 02, 2024 End: February 02, 2024 Equipment Installer Relationship Specialty Start Date End Date Boone Cortes DO [address] [place] [id number] PCP - General Family Medicine 11/24/23 Goals (unrecognized section and content) Goals may be documented in a n alternate section FOR RECORDS PERTAINING TO PATIENTS WHO ARE OR HAVE BEEN ENROLLED IN A CHEMICAL DEPENDENCY/SUBSTANCEABUSE PROGRAM, SOME INFORMATION MAY BE OMITTED. This clinical summary was aggregated from multiple sources. Caution should be exercised in using it in the provision of clinical care. This summary normalizes information from multiple sources, and as a consequence, information in this document may materially change the coding, format and clinical context of patient data. In addition, data may be omitted in some cases. CLINICAL DECISIONS SHOULD BE BASED ON THE PRIMARY CLINICAL RECORDS. [facility] [employer] [facility]. provides no warranty or guarantee of the accuracy or completeness of information in this document.
== END 2024-02-14 15:17 | disposition home or self-care (01) ==
LOC: MRI 15:16
PROVIDERS: PCP Family Medicine; Visit Provider Anesthesiology
DX: M48.062 Spinal stenosis, lumbar region with neurogenic claudication (principal); M51.369 Other intervertebral disc degeneration, lumbar region without mention of lumbar back pain or lower extremity pain
CPT/HCPCS: 72148